=== PATIENT | male | born 1945 | race African-American/Black ===

== ENCOUNTER 2021-06-11 07:07 | Day surgery (SDC) | payer OTHER ==
[2021-06-11] MEDS ORDERED: NA CHLORIDE 0.9% 500 ML ONE (08:28)
[2021-06-11 08:41] VITALS: O2SAT 98
[2021-06-11 08:42] VITALS: BMI 32.9
[2021-06-11 13:18] VITALS: BP 120/66; TEMP 98.8
[2021-06-11 14:06] LABS: Hematocrit 30.9 % (39.6-49.0)
== END 2021-06-11 13:58 | disposition home or self-care (01) ==
LOC: DS 07:07
PROVIDERS: ATTEND Internal Medicine
DX: D62 Acute posthemorrhagic anemia (principal)
CPT/HCPCS: 36415; 86900; 86850; 86901; 85018; 85014; 36430; P9016 ×2; J7050

== ENCOUNTER 2021-07-23 14:22 | Inpatient (IN) | payer OTHER ==
--- OUTSIDE RECORDS SUMMARY | 2021-07-23 14:24 | XMS REPORT | Continuity of Care Document ---
:1945 Author Organization [facility] t Address [address] [place] [address] Dr. [address] [place] [address] Care Team Providers Name Role Phone Unavailable Unavailable Unavailable Problems This patient has no known problems. Allergies, Adverse Reactions, Alerts This patient has no known allergies or adverse reactions. Medications This patient has no known medications. Procedures This patient has no known procedures. Results This patient has no known results.
--- NOTE | 2021-07-23 15:36 | RAD REPORT ---
EXAM DESCRIPTION: RAD - Chest Single View - 07/23/2021 3:29 pm CLINICAL HISTORY: DYSPNEA COMPARISON: Two view chest June 27 ; two view chest June 10 TECHNIQUE: AP portable chest image was obtained 07/23/2021 3:29 pm . FINDINGS: Lung volumes are low than the comparison examination. Diffusely prominent interstitial pat tern is present with patchy alveolar opacities present on left. Pattern is more pronounced than on th e comparison study much of which is due to portable technique shallow inspiration. Similar findings w ere present on the 2 prior examinations. Severity of chronic disease could mask superimposed pneumoni a or interstitial edema. Left hemidiaphragm is partially obscured. Small left pleural effusion cannot be excluded. Cardiac silhouette and vasculature are similar to comparison. No pneumothorax. No acute bony abnormal ity seen. No acute aortic findings suspected. IMPRESSION: Patient has extensive baseline interstitial opacification that is more pronounced in the lower left lung field. Given the portable technique and more shallow inspiration, chest is not substantially different from comparison imaging. Severity of chronic disease could mask superimposed pneumonia or interstitial edema.
[2021-07-23 15:39] LABS: Arterial Blood Carboxyhemoglob 1.1 % (0-1.5); Blood Gas Oxyhemoglobin 93.8 % (94-97)
[2021-07-23 16:42] LABS: ALT/SGPT 26 U/L (12-78); AST/SGOT 90 U/L (15-37); Albumin 2.6 g/dL (3.4-5.0); Alkaline Phosphatase 81 U/L (45-117); BUN Blood Urea Nitrogen 53 mg/dL (7-18); Bicarbonate 15 mmol/L (21-32); Bilirubin Direct 0.2 mg/dL (0-0.2); Bilirubin Total 0.5 mg/dL (0.2-1.0); Glucose Level 190 mg/dL (74-106); Lipase 144 U/L (73-393); NT PRO-BNP 721 pg/mL (<450); Potassium 4.2 mmol/L (3.5-5.1); Protein, Total 9.2 g/dL (6.4-8.2); Sodium Level 136 mmol/L (136-145); Troponin (Emerg Dept Use Only) < 0.02 ng/mL (0.0-0.045)
[2021-07-23 16:52] LABS: Absolute Lymphocytes (CBC) 0.3 K/uL (0.7-4.9); Basophils % 0.6 % (0-1.3); Hematocrit 35.6 % (39.6-49.0); MPV 9.3 fL (7.6-11.3); RBC Red Blood Cell Count 5.23 M/uL (4.33-5.43)
--- NOTE | 2021-07-23 18:00 | ER ---
Nurse's Notes [facility] Name: Shyam Malcolm Age: 75 yrs Sex: Male : 1945 Arrival Date: 07/23/2021 Time: 14:29 Bed 16 Private MD: Diagnosis: Pneumonia due to SARS-associated coronavirus;Hypoxemia;COPD/ Chronic obstructive pulmonary disease with (acute) exacerbation Presentation: 07/23 14:42 Chief complaint: Patient's son or daughter states: sent by Dr Velazquez for hypoxia, was sv 50% on RA at his office. c/o low O2 and abd cramping and COVID like symptoms. Coronavirus screen: Client presents with at least one sign or symptom that may indicate coronavirus-19. Ebola Screen: No symptoms or risks identified at this time. Initial Sepsis Screen: Does the patient meet any 2 criteria? RR > 20 per min. HR > 90 bpm. Yes Does the patient have a suspected source of infection? No. Patient's initial sepsis screen is negative. Risk Assessment: Do you want to hurt yourself or someone else? Patient reports no desire to harm self or others. Onset of symptoms was July 23, 2021. 14:42 Method Of Arrival: Wheelchair sv 14:42 Acuity: JUVENAL 2 sv 14:44 Coronavirus screen: Vaccine status: Patient reports receiving the 1st dose of the Covid sv vaccine. Date July 18, 2021. 22:27 Note levaquin delayed due to iv access. lh3 Triage Assessment: 07/24 19:00 General: Appears in no apparent distress. comfortable, Behavior is calm, cooperative. bs2 Historical: - Allergies: 07/23 14:44 No Known Allergies; sv - Immunization history:: Adult Immunizations up to date. - Social history:: Smoking status: Patient/guardian denies using tobacco, but has a distant history of tobacco abuse. - Family history:: not pertinent. - Hospitalizations: : No recent hospitalization is reported. Screenin:52 Abuse screen: Denies threats or abuse. Denies injuries from another. Nutritional ch5 screening: No deficits noted. Tuberculosis screening: No symptoms or risk factors identified. Fall Risk None identified. Assessment: 15:49 Pain: Denies pain. Respiratory: Reports shortness of breath Feeling sick after 1st ch5 COVID vaccine. GI: Bowel sounds present X 4 quads. Abd is soft and non tender. 16:07 Reassessment: ABG drawn. RT declined BIPAP due to values and no complaint of difficulty ch5 breathing. BIPAP at bedside.. 18:01 Reassessment: No changes from previously documented assessment. Lab at bedside to draw ch5 rest of labs. Vital Signs: 14:42 BP 103 / 53; Pulse 102; Resp 22; Temp 98.3(O); Pulse Ox 78% on R/A; Weight 82.55 kg; sv Height 5 ft. 5 in. (165.10 cm); 15:52 BP 100 / 56; Pulse 98; Resp 34; Pulse Ox 84% on 4 lpm NC; Pain 0/10; ch5 16:06 BP 102 / 59; Pulse 96; Resp 34; Pulse Ox 90% on 5 lpm NC; Pain 0/10; ch5 17:01 BP 101 / 57; Pulse 90; Resp 31; Pulse Ox 97% 5 lpm ; Pain 0/10; ch5 18:01 BP 112 / 62; Pulse 89; Resp 31; Pulse Ox 96% on Nebulizer Mask; Pain 0/10; ch5 14:42 Body Mass Index 30.28 (82.55 kg, 165.10 cm) sv 14:42 Pt placed on O2 \T\ 4L per NC. O2 sat up to 87%. sv ED Course: 14:29 Patient arrived in ED. rg4 14:42 Arm band placed on. sv 14:44 Triage completed. sv 14:48 Fernando Alejandra MD is Attending Physician. rn 15:20 Patient has correct armband on for positive identification. Placed in gown. Bed in low mh5 position. Call light in reach. Side rails up X2. Adult w/ patient. Warm blanket given. patient monitor on. Pulse ox on. NIBP on. 15:20 EKG done, by ED staff, reviewed by Fernando Alejandra MD COVID swab sent to lab. 5 15:29 XRAY CXR (1 view) In Process Unspecified. EDMS 15:48 Milton Mccann, MÓNICA is Primary Nurse. ch5 15:52 No provider procedures requiring assistance completed. Inserted saline lock: 22 gauge ch5 in right wrist, using aseptic technique. 15:55 ABG Sent. ch5 15:55 BMP Sent. ch5 15:55 Blood Culture Adult (2) Sent. ch5 15:55 CBC with Diff Sent. ch5 15:55 D-Dimer Sent. ch5 17:59 Zen Velazquez MD is Hospitalizing Provider. rn 19:52 Primary Nurse role handed off by Milton Mccann, MÓNICA 3 19:52 Alexandra Carrero RN is Primary Nurse. 3 07/24 14:40 Inserted saline lock: 22 gauge in right antecubital area, using aseptic technique. kg 07/25 06:36 Patient admitted, IV remains in place. bs2 Administered Medications: 07/23 17:30 Drug: SOLU-Medrol (methylPrednisoLONE) 125 mg Route: IVP; Site: left antecubital; 5 22:27 Follow up: Response: No adverse reaction lh3 17:56 Drug: Xopenex (levalbuterol) 1.25 mg Route: Inhalation; ch5 22:26 Follow up: Response: No adverse reaction lh3 22:27 Drug: LevaQUIN (levofloxacin) 500 mg Volume: 100 ml; Route: IVPB; Infused Over: 60 lh3 mins; Site: right hand; 07/25 06:36 Follow up: IV Status: Completed infusion bs2 Outcome: 07/23 17:59 Decision to Hospitalize by Provider. rn 07/24 19:30 Admitted to ER Hold. Please see [facility] for further documentation. bs2 Condition: stable Instructed on the need for admit. 07/25 20:32 Patient left the ED. jb4 Signatures: Dispatcher [employer] EDMS Cristina Ramos RN RN sv Nieto, Roman, MD MD rn Garcia, Rubi 4 Immanuel Rider RN RN 4 Katina Cody Chantelle Hahn RN RN kg Marlena Cyr RN RN bs2 Alexandra Carrero RN RN 3 Milton Mccann RN RN ch5 Corrections: (The following items were deleted from the chart) 07/23 14:45 14:42 Acuity: JUVENAL 1 sv sv 14:51 14:42 BP 103 / 53; Pulse 102bpm; Resp 22bpm; Pulse Ox 80% RA; Temp 98.3F Oral; 82.55 sv kg; Height 5 ft. 5 in.; BMI: 30.2; sv
--- NOTE | 2021-07-23 18:01 | EDPHYS ---
Physician Documentation [facility] Name: Shyam Malcolm Age: 75 yrs Sex: Male : 1945 Arrival Date: 07/23/2021 Time: 14:29 Bed 16 Private MD: ED Physician Fernando Alejandra HPI: 07/23 15:08 This 75 yrs old Black Male presents to ER via Wheelchair with complaints of Low O2. rn 16:08 The patient has shortness of breath at rest, with light activity. Onset: The rn symptoms/episode began/occurred at an unknown time. Duration: The symptoms are intermittent. The patient's shortness of breath is aggravated by exertion, light activity, is alleviated by nothing. Associated signs and symptoms: Pertinent positives: non-productive cough, Pertinent negatives: fever, hemoptysis, loss of consciousness. Severity of symptoms: At their worst the symptoms were moderate in the emergency department the symptoms have improved. The patient has experienced similar episodes in the past. The patient has been recently seen by a physician:. Patient sent by Dr. Velazquez for trouble breathing and low oxygen saturation. Seen in clinic today. Patient with history of COPD. or family member states noticed weakness and decreased appetite over the last week, but difficulty breathing did not start until today. Denies fever or productive cough. No recent trauma. Dr. Velazquez states history of GI bleed, patient denies any blood in stool. Historical: - Allergies: 14:44 No Known Allergies; sv - Immunization history:: Adult Immunizations up to date. - Social history:: Smoking status: Patient/guardian denies using tobacco, but has a distant history of tobacco abuse. - Family history:: not pertinent. - Hospitalizations: : No recent hospitalization is reported. ROS: 16:08 Constitutional: Negative for fever, chills, and weight loss, Eyes: Negative for injury, rn pain, redness, and discharge, Neck: Negative for injury, pain, and swelling, Cardiovascular: Negative for chest pain, palpitations, and edema, Respiratory: Positive for shortness of breath and cough Abdomen/GI: Negative for abdominal pain, nausea, vomiting, diarrhea, and constipation, Back: Negative for injury and pain, : Negative for injury, bleeding, discharge, and swelling, MS/Extremity: Negative for injury and deformity, Skin: Negative for injury, rash, and discoloration, Neuro: Negative for headache, numbness, tingling, and seizure. 16:08 All other systems are negative. Exam: 16:08 Constitutional: This is a well developed, well nourished patient who is awake, alert, rn moderate tachypnea Head/Face: Normocephalic, atraumatic. Eyes: Periorbital areas with no swelling, redness, or edema. ENT: Dry mucous membranes, no stridor Cardiovascular: Regular rate and rhythm. No pulse deficits. Respiratory: Moderate tachypnea, diminished at bases, no retractions Abdomen/GI: Soft, non-tender Skin: Warm, dry, no cyanosis MS/ Extremity: Pulses equal, no cyanosis. Neuro: Awake and alert, GCS 15 17:13 ECG was reviewed by the Attending Physician. rn Vital Signs: 14:42 BP 103 / 53; Pulse 102; Resp 22; Temp 98.3(O); Pulse Ox 78% on R/A; Weight 82.55 kg; sv Height 5 ft. 5 in. (165.10 cm); 15:52 BP 100 / 56; Pulse 98; Resp 34; Pulse Ox 84% on 4 lpm NC; Pain 0/10; ch5 16:06 BP 102 / 59; Pulse 96; Resp 34; Pulse Ox 90% on 5 lpm NC; Pain 0/10; ch5 17:01 BP 101 / 57; Pulse 90; Resp 31; Pulse Ox 97% 5 lpm ; Pain 0/10; ch5 18:01 BP 112 / 62; Pulse 89; Resp 31; Pulse Ox 96% on Nebulizer Mask; Pain 0/10; ch5 14:42 Body Mass Index 30.28 (82.55 kg, 165.10 cm) sv 14:42 Pt placed on O2 \T\ 4L per NC. O2 sat up to 87%. sv MDM: 14:48 Patient medically screened. rn 17:54 Differential diagnosis: CHF exacerbation, Chronic Obstructive Pulmonary Disease rn pneumonia, Pneumothorax Sepsis COVID. Data reviewed: vital signs, nurses notes, lab test result(s), EKG, radiologic studies, plain films, and as a result, I will admit patient. 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 Interpretation: hypoxia. Plan: O2 by NC applied. Test interpretation: by ED physician or midlevel provider: plain radiologic studies, CXR with bilateral interstitial infiltrate . Counseling: I had a detailed discussion with the patient and/or guardian regarding: the historical points, exam findings, and any diagnostic results supporting the discharge/admit diagnosis, lab results, radiology results, the need for further work-up and treatment in the hospital. Response to treatment: the patient's symptoms have mildly improved after treatment, and as a result, I will admit patient. Admission orders: after a detailed discussion of the patient's condition and case, the admit orders are written by me. ED course: Patient with Covid pneumonia and hypoxemia, with COPD exacerbation. Will admit to Dr. Velazquez with consultation to Dr. Marquis. . 07/23 14:53 Order name: BMP 07/23 14:53 Order name: Blood Culture Adult (2) 07/23 14:53 Order name: CBC with Diff 07/23 14:53 Order name: D-Dimer 07/23 14:53 Order name: Hepatic Function; Complete Time: 16:45 07/23 14:53 Order name: Lipase; Complete Time: 16:45 07/23 14:53 Order name: NT PRO-BNP; Complete Time: 16:45 07/23 14:53 Order name: PT-INR 07/23 14:53 Order name: Ptt, Activated rn 07/23 14:53 Order name: Troponin (emerg Dept Use Only); Complete Time: 16:45 07/23 14:53 Order name: Procalcitonin; Complete Time: 16:45 07/23 14:53 Order name: Ferritin; Complete Time: 16:45 07/23 14:53 Order name: CRP; Complete Time: 16:45 07/23 14:53 Order name: Type And Screen 07/23 14:53 Order name: Basic Metabolic Panel; Complete Time: 16:45 [facility] 07/23 14:53 Order name: Blood Culture [facility] 07/23 14:53 Order name: CBC with Automated Diff; Complete Time: 17:06 EDAK 07/23 14:53 Order name: D-Dimer [facility] 07/23 15:20 Order name: ABG 07/23 15:20 Order name: ABG Arterial Blood Gas; Complete Time: 16:45 EDMS 07/23 17:52 Order name: SARS-COV-2 RT PCR; Complete Time: 17:53 EDMS 07/24 03:16 Order name: Basic Metabolic Panel EDAK 07/24 03:26 Order name: CBC with Automated Diff EDMS 07/24 04:48 Order name: Manual Differential EDMS 07/24 16:09 Order name: Comprehensive Metabolic Panel EDMS 07/24 17:33 Order name: Glucose, Ancillary Testing EDMS 07/24 18:25 Order name: Transferrin Sat/Iron Binding EDMS 07/25 08:00 Order name: Glucose, Ancillary Testing EDMS 07/25 12:03 Order name: Glucose, Ancillary Testing EDMS 07/23 14:53 Order name: XRAY CXR (1 view); Complete Time: 15:44 rn 07/23 14:53 Order name: EKG; Complete Time: 14:54 rn 07/23 14:53 Order name: Cardiac monitoring; Complete Time: 15:20 rn 07/23 14:53 Order name: EKG - Nurse/Tech; Complete Time: 14:57 rn 07/23 14:53 Order name: IV Saline Lock; Complete Time: 15:55 rn 07/23 14:53 Order name: Labs collected and sent; Complete Time: 15:55 rn 07/23 14:53 Order name: O2 Per Protocol; Complete Time: 14:58 rn 07/23 14:53 Order name: O2 Sat Monitoring; Complete Time: 14:58 rn 07/23 16:15 Order name: Labs - recollect needed: recollect type and screen and pt, ptt. rebmark pt; bd Complete Time: 18:39 07/24 14:55 Order name: US EDAK 07/25 13:07 Order name: Gram Stain--Aerobic Bottle EDAK 07/25 16:45 Order name: Glucose, Ancillary Testing EDMS EC:13 Rate is 104 beats/min. Rhythm is regular. QRS [place] is Normal. [place] interval is normal. rn QRS interval is normal. QT interval is normal. No Q waves. T waves are Normal. No ST changes noted. Clinical impression: Sinus tachycardia. Interpreted by me. Reviewed by me. Administered Medications: 17:30 Drug: SOLU-Medrol (methylPrednisoLONE) 125 mg Route: IVP; Site: left antecubital; ch5 22:27 Follow up: Response: No adverse reaction 3 17:56 Drug: Xopenex (levalbuterol) 1.25 mg Route: Inhalation; 5 22:26 Follow up: Response: No adverse reaction 3 22:27 Drug: LevaQUIN (levofloxacin) 500 mg Volume: 100 ml; Route: IVPB; Infused Over: 60 lh3 mins; Site: right hand; 07/25 06:36 Follow up: IV Status: Completed infusion bs2 Disposition Summary: 07/23/21 17:59 Hospitalization Ordered Hospitalization Status: Inpatient Admission rn Provider: Zen Velazquez rn Condition: Stable rn Problem: new rn Symptoms: have improved rn Bed/Room Type: Standard rn Location: Telemetry/MedSurg (Inpatient)(07/25/21 12:51) Room Assignment: [facility](07/25/21 12:51) Diagnosis - Pneumonia due to SARS-associated coronavirus rn - Hypoxemia rn - COPD/ Chronic obstructive pulmonary disease with (acute) exacerbation rn Forms: - Medication Reconciliation Form rn - SBAR form rn Signatures: Dispatcher [employer] EDMS Marjan Julien Stephanie RN RN Nini Malcolm RN RN Fernando Alejandra MD MD rn Hardee, Latisha, RN RN [facility] Milton Mccann RN RN 5 Marlena Cyr RN bs2 Corrections: (The following items were deleted from the chart) 07/23 16:56 14:54 CORONAVIRUS+MR.LAB.BRZ ordered. EDMS EDMS 18:36 17:59 Telemetry/MedSurg (Inpatient) rn bd 18:36 17:59 rn bd 07/25 12:51 07/23 18:36 BR ER HOLD bd iw 07/25 12:51 07/23 18:36 ERHOLD- bd iw
[2021-07-23] MEDS ORDERED: METHYLPREDNISOLONE 125 MG INJ ONE ×2 (18:11→20:20)
[2021-07-23] MEDS ORDERED: LEVALBUTEROL 1.25 MG/3 ML NEB ONE ×2 (18:12→20:21)
[2021-07-23 19:19] LABS: Protime INR 0.99
--- NOTE | 2021-07-23 19:58 | P.HP ---
Certification for Inpatient Patient admitted to: Inpatient With expected LOS: >2 Midnights Patient will require the following post-hospital care: Home Health Services Practitioner: I am a practitioner with admitting privileges, knowledge of patient current condition, hospital course, and medical plan of care. Services: Services provided to patient in accordance with Admission requirements found in Title 42 Section 412.3 of the Code of Federal Regulations Patient History Date of Service: 07/23/21 Primary Care Provider: Ewa Parisi Reason for admission: Covid Pneumonia History of Present Illness: Patient is an office patient of ours with a history of diabetes, copd and GI bleed, htn. He had his first covid vaccination this past Wednesday. He has been feeling dizzy for the past few days. The patient has been to [place] and had famiy visiting him at home. He was hypoxix in the office with a pulse ox in the 50-60's. tachycardic at rest and using acessory muscles. He was brought to the ER by his sister. The patient did well on oxygen. He was found to be covid positive. Will admit him to office. Allergies No Known Allergies Allergy (Verified 06/11/21 09:00) Home Medications: Albuterol Inhaler [Ventolin Inhaler] 2 puff IH Q6H PRN 06/11/21 Amox/Clavulanate [Augmentin 875-125 Tab*] 1 tab PO BID 06/11/21 Atorvastatin Calcium [Lipitor] 10 mg PO BEDTIME 06/11/21 Benzonatate [Tessalon Perle] 100 mg PO TID 06/11/21 Cyclobenzaprine [Flexeril*] 10 mg PO DAILY 06/11/21 Dapagliflozin Propanediol [Farxiga] 10 mg PO DAILY 06/11/21 Omeprazole 20 mg PO DAILY 06/11/21 Sitagliptin Phos/Metformin HCl [Janumet Xr 100-1,000 mg Tablet] 1 tab PO DAILY 06/11/21 Tiotropium [place] [Spiriva Respimat] 4 gm IH BID 06/11/21 - Past Medical/Surgical History Diabetic: Yes Review of Systems General: Other (dizziness) Respiratory: Shortness of Breath, SOB with Excertion Cardiovascular: Light Headedness Physical Examination - Physical Exam General: Alert, Moderate distress HEENT: Atraumatic, PERRLA, Mucous membr. moist/pink, EOMI, Sclerae nonicteric Neck: Supple, 2+ carotid pulse no bruit, No LAD, Without JVD or thyroid abnormality Respiratory: Normal air movement, Crackles/rales (left basilar crepitation) Cardiovascular: Regular rate/rhythm, Normal S1 S2 Gastrointestinal: Normal bowel sounds, No tenderness Musculoskeletal: No tenderness Integumentary: No rashes Neurological: Normal gait, Normal speech, Normal strength at 5/5 x4 extr, Normal tone, Normal affect Lymphatics: No axilla or inguinal lymphadenopathy - Studies Laboratory Data (last 24 hrs) 07/23/21 15:40: WBC 7.70, Hgb 10.4 L, Hct 35.6 L, Plt Count 140 L 07/23/21 15:40: Sodium 136, Potassium 4.2, BUN 53 H, Creatinine 3.15 H, Glucose 190 H, Total Bilirubin 0.5, AST 90 H, ALT 26, Alkaline Phosphatase 81, Lipase 144 Assessment and Plan - Problems (Diagnosis) (1) COVID-19 Current Visit: Yes Status: Acute Plan: will consult Dr. Aviles. He is improving with steroids and high flow oxygen (2) COPD (chronic obstructive pulmonary disease) Current Visit: Yes Status: Chronic Plan: Start on levalbuterol and he is on steroids. Qualifiers: COPD type: chronic bronchitis Chronic bronchitis type: simple Qualified Code(s): J41.0 - Simple chronic bronchitis (3) DM2 (diabetes mellitus, type 2) Current Visit: Yes Status: Chronic Plan: will start him on his home medications Qualifiers: Diabetes mellitus nursing home insulin use: without nursing home use Diabetes mellitus complication status: without complication Qualified Code(s): E11.9 - Type 2 diabetes mellitus without complications (4) HTN (hypertension) Current Visit: Yes Status: Acute Plan: will start the patient on his home medications. Ruiz adjust as necessary Qualifiers: Hypertension type: primary hypertension Qualified Code(s): I10 - Essential (primary) hypertension Discharge Plan: Home - Advance Directives Does patient have a Living Will: Yes Does patient have a Durable POA for Healthcare: Yes - Code Status/Comfort Care Code Status Assessed: No Physician Review: Patient Assessed, Agree with Above Assessment and Plan Critical Care: No Time Spent Managing Pts Care (In Minutes): 80
[2021-07-23] MEDS ORDERED: Levofloxacin500mg IV 500 MG/100 ML BAG IV ONE (20:21)
[2021-07-23] MEDS: [UNRECOGNIZED DRUG - OTHER] IH SCH (22:28)
[2021-07-23] MEDS ORDERED: ONDANSETRON 4 MG/2 ML VIAL IV PRN (22:28)
[2021-07-23] MEDS ORDERED: ALBUTEROL 2.5 MG/3 ML NEB SOL NEB PRN (22:28)
[2021-07-23] MEDS: NA CHLORIDE 0.9% 1,000 ML IV SCH (22:28)
[2021-07-23] MEDS: ATORVASTATIN 10 MG TAB PO SCH (22:28)
[2021-07-23] MEDS ORDERED: IPRATROPIUM BROM 0.5MG/2.5ML NEB PRN (22:28)
[2021-07-23] MEDS: APIXABAN 5 MG TABLET PO SCH (22:28)
[2021-07-23] MEDS ORDERED: ATORVASTATIN 20 MG TAB ONE (23:46)
[2021-07-23] MEDS ORDERED: APIXABAN 5 MG TABLET ONE (23:47)
[2021-07-23] MEDS ORDERED: NA CHLORIDE 0.9% 1,000 ML ONE (23:47)
[2021-07-24] MEDS ORDERED: METHYLPREDNISOLONE 40 MG INJ IV SCH (01:00)
[2021-07-24] MEDS: METHYLPREDNISOLONE 40 MG INJ IV SCH ×3 (01:00→17:00)
[2021-07-24] MEDS ORDERED: METHYLPREDNISOLONE 40 MG INJ ONE (01:26)
[2021-07-24] MEDS ORDERED: ASCORBIC ACID 500 MG TABLET ONE ×5 (01:26→17:21)
[2021-07-24 03:16] LABS: Absolute Lymphocytes (CBC) 0.2 K/uL (0.7-4.9); Basophils % 0.3 % (0-1.3); Hematocrit 34.7 % (39.6-49.0); Lymphocytes % 3.9 % (15.3-44.8); MPV 8.8 fL (7.6-11.3); Potassium 4.8 mmol/L (3.5-5.1)
[2021-07-24 04:47] LABS: Anisocytosis 2+; Blood Morphology Comment NOTED (NOT SEEN); Platelet Estimate ADEQ
[2021-07-24 04:48] LABS: Hypochromasia 2+
[2021-07-24] MEDS: ASCORBIC ACID 500 MG TABLET PO SCH ×4 (05:13→17:33)
[2021-07-24] MEDS ORDERED: ASPIRIN EC 81 MG TAB PO ONE (07:50)
[2021-07-24] MEDS ORDERED: METHYLPREDNISOLONE 125 MG INJ ONE ×2 (07:50→17:35)
[2021-07-24] MEDS ORDERED: APIXABAN 5 MG TABLET ONE (07:51)
[2021-07-24] MEDS ORDERED: NA CHLORIDE 0.9% 1,000 ML ONE (07:51)
[2021-07-24] MEDS ORDERED: VITAMIN D 1000 UNIT TAB ONE (07:51)
[2021-07-24] MEDS ORDERED: ZINC SULFATE 220 MG CAP ONE (07:51)
[2021-07-24] MEDS: BARICITINIB 2 MG TABLET PO SCH (09:00)
[2021-07-24] MEDS: VITAMIN D 5,000 UNIT CAP PO SCH (09:00)
[2021-07-24] MEDS: APIXABAN 5 MG TABLET PO SCH ×2 (09:00→21:00)
[2021-07-24] MEDS: [UNRECOGNIZED DRUG - OTHER] IH SCH (09:00)
[2021-07-24] MEDS: ZINC SULFATE 220 MG CAP PO SCH (09:00)
[2021-07-24] MEDS: IVERMECTIN 3 MG TABLET PO SCH (09:00)
[2021-07-24] MEDS: ASPIRIN EC 81 MG TAB PO SCH (09:00)
[2021-07-24] MEDS ORDERED: ONDANSETRON 4 MG/2 ML VIAL ONE (09:54)
[2021-07-24] MEDS ORDERED: IPRATROPIUM BROM 0.5MG/2.5ML ONE (10:00)
[2021-07-24] MEDS: TIOTROPIUM 5 SPRAYS/INHALER IH SCH (10:30)
[2021-07-24] MEDS: NA CHLORIDE 0.9% 1,000 ML IV SCH (11:48)
--- NOTE | 2021-07-24 12:40 | P.CNS ---
Date of Consult: 07/24/21 Primary Care Provider: Ewa Parisi Chief Complaint: Covid Pneumonia History of Present Illness: Patient is 75 years of age patient is 45 years of age with metabolic syndrome admitted with coronavirus pneumonia Allergies No Known Allergies Allergy (Verified 06/11/21 09:00) Home Medications: Albuterol Inhaler [Ventolin Inhaler] 2 puff IH Q6H PRN 06/11/21 Amox/Clavulanate [Augmentin 875-125 Tab*] 1 tab PO BID 06/11/21 Atorvastatin Calcium [Lipitor] 10 mg PO BEDTIME 06/11/21 Benzonatate [Tessalon Perle] 100 mg PO TID 06/11/21 Cyclobenzaprine [Flexeril*] 10 mg PO DAILY 06/11/21 Dapagliflozin Propanediol [Farxiga] 10 mg PO DAILY 06/11/21 Omeprazole 20 mg PO DAILY 06/11/21 Sitagliptin Phos/Metformin HCl [Janumet Xr 100-1,000 mg Tablet] 1 tab PO DAILY 06/11/21 Tiotropium [place] [Spiriva Respimat] 4 gm IH BID 06/11/21 - Past Medical/Surgical History Diabetic: Yes -: Diabetes -: Hyperlipidemia Review of Systems General: Weakness Respiratory: Shortness of Breath Physical Examination Temp Pulse Resp BP Pulse Ox 97.9 F 77 24 H 126/72 95 07/24/21 09:47 07/24/21 09:47 07/24/21 09:47 07/24/21 09:47 07/24/21 09:47 General: Alert, Oriented x3, Cooperative, Moderate distress Laboratory Data (last 24 hrs) 07/23/21 15:40: WBC 7.70, Hgb 10.4 L, Hct 35.6 L, Plt Count 140 L 07/23/21 15:40: Sodium 136, Potassium 4.2, BUN 53 H, Creatinine 3.15 H, Glucose 190 H, Total Bilirubin 0.5, AST 90 H, ALT 26, Alkaline Phosphatase 81, Lipase 144 - Problems (1) COVID-19 Current Visit: Yes Status: Acute Plan: Age 75 admitted with [facility] age 75 admitted with coronavirus pneumonia/chronic renal failure patient has microcytic anemia I have ordered a renal ultrasound needs nephrology consult urinalysis
--- NOTE | 2021-07-24 14:54 | RAD REPORT ---
EXAM DESCRIPTION: US - Renal Ultrasound-Complete - 07/24/2021 1:54 pm CLINICAL HISTORY: Renal failure presumed chronic Flank pain COMPARISON: No comparisons FINDINGS: Both kidneys are normal in size, shape and echotexture. The right kidney measures 9.5 x 4.5 x 4.2 cm. No hydronephrosis, focal mass or perinephric fluid. The left kidney measures 9.4 x 5.9 x 5.3 cm. 26 x 25 mm benign cyst medial left kidney. No hydronephr osis, focal mass or perinephric fluid. The urinary bladder is incompletely distended without gross abnormality seen. IMPRESSION: Benign left renal cyst measuring 25 mm, otherwise normal study.
[2021-07-24 16:00] LABS: Albumin 2.3 g/dL (3.4-5.0); Bilirubin Total 0.5 mg/dL (0.2-1.0); Potassium 4.8 mmol/L (3.5-5.1); Protein, Total 8.3 g/dL (6.4-8.2)
[2021-07-24] MEDS ORDERED: GLUCAGON 1 MG/VIAL IM PRN (16:46)
[2021-07-24] MEDS ORDERED: D50W 25 GM/50 ML SYRINGE IV PRN (16:46)
[2021-07-24] MEDS: NACHLORIDE 0.45% 1,000 ML IV SCH (17:00)
--- NOTE | 2021-07-24 17:08 | P.PN ---
Subjective Date of Service: 07/24/21 Primary Care Provider: Ewa Parisi Chief Complaint: Covid Pneumonia Subjective: No new changes (on high flow) Review of Systems 10-point ROS is otherwise unremarkable Respiratory: Cough, Shortness of Breath Physical Examination - Vital Signs Temperature: 98.5 F Blood Pressure: 113/68 Pulse: 74 Respirations: 22 Pulse Ox (%): 95 - Physical Exam General: Alert, Mild distress HEENT: Atraumatic, PERRLA, EOMI Neck: Supple, JVD not distended Respiratory: Clear to auscultation bilaterally, Normal air movement Cardiovascular: Regular rate/rhythm, Normal S1 S2 Gastrointestinal: Normal bowel sounds, No tenderness Musculoskeletal: No tenderness Integumentary: No rashes Neurological: Normal speech, Normal tone, Normal affect Lymphatics: No axilla or inguinal lymphadenopathy - Studies Microbiology Data (last 24 hrs): 07/23/21 15:40 Blood - Blood Anaerobic Blood Culture - Final Assessment & Plan - Problems (Diagnosis) (1) Acute on chronic renal failure Current Visit: Yes Status: Acute Plan: possible atn secondary to covid. His baseline creatine is 1.3. will consult Dr. Ford Qualifiers: Acute renal failure type: unspecified Chronic kidney disease stage: stage 4 (severe) Qualified Code(s): N17.9 - Acute kidney failure, unspecified; N18.4 - Chronic kidney disease, stage 4 (severe) (2) COVID-19 Current Visit: Yes Status: Acute Plan: will consult Dr. Aviles. He is improving with steroids and high flow oxygen (3) COPD (chronic obstructive pulmonary disease) Current Visit: Yes Status: Chronic Plan: Start on levalbuterol and he is on steroids. Qualifiers: COPD type: chronic bronchitis Chronic bronchitis type: simple Qualified Code(s): J41.0 - Simple chronic bronchitis (4) DM2 (diabetes mellitus, type 2) Current Visit: Yes Status: Chronic Plan: elevated today will start him on a low dose sliding scale Qualifiers: Diabetes mellitus buttermaker helper insulin use: without care home use Diabetes mellitus complication status: without complication Qualified Code(s): E11.9 - Type 2 diabetes mellitus without complications (5) HTN (hypertension) Current Visit: Yes Status: Acute Plan: will start the patient on his home medications. Ruiz adjust as necessary Qualifiers: Hypertension type: primary hypertension Qualified Code(s): I10 - Essential (primary) hypertension Discharge Plan: Home - Code Status/Comfort Care Code Status Assessed: No Code Status: Full Code Physician Review: Patient Assessed, Agree with Above Assessment and Plan Critical Care: No Time Spent Managing Pts Care (In Minutes): 25
[2021-07-24] MEDS: INSULIN -REGULAR HUMAN 50 UNIT/0.5 ML ML SQ SCH (17:34)
[2021-07-24] MEDS ORDERED: NACHLORIDE 0.45% 1,000 ML IV ONE (17:35)
[2021-07-24] MEDS ORDERED: INSULIN -REGULAR HUMAN 50 UNIT/0.5 ML ML ONE (17:45)
[2021-07-24] MEDS: ATORVASTATIN 10 MG TAB PO SCH (21:00)
[2021-07-25] MEDS: METHYLPREDNISOLONE 40 MG INJ IV SCH ×3 (01:00→17:00)
[2021-07-25] MEDS ORDERED: APIXABAN 5 MG TABLET ONE ×2 (01:11→08:40)
[2021-07-25] MEDS ORDERED: ATORVASTATIN 20 MG TAB ONE (01:11)
[2021-07-25] MEDS ORDERED: ASCORBIC ACID 500 MG TABLET ONE ×2 (01:11→08:38)
[2021-07-25] MEDS ORDERED: METHYLPREDNISOLONE 40 MG INJ ONE ×3 (01:12→17:18)
[2021-07-25] MEDS: ASCORBIC ACID 500 MG TABLET PO SCH ×4 (06:00→20:20)
[2021-07-25] MEDS: INSULIN -REGULAR HUMAN 50 UNIT/0.5 ML ML SQ SCH ×4 (07:30→20:21)
[2021-07-25] MEDS: APIXABAN 5 MG TABLET PO SCH ×2 (08:37→20:20)
[2021-07-25] MEDS: ASPIRIN EC 81 MG TAB PO SCH (08:37)
[2021-07-25] MEDS: ZINC SULFATE 220 MG CAP PO SCH (08:38)
[2021-07-25] MEDS: VITAMIN D 5,000 UNIT CAP PO SCH (08:38)
[2021-07-25] MEDS ORDERED: INSULIN -REGULAR HUMAN 50 UNIT/0.5 ML ML ONE ×3 (08:39→17:19)
[2021-07-25] MEDS ORDERED: ASPIRIN EC 81 MG TAB PO ONE (08:40)
[2021-07-25] MEDS ORDERED: ZINC SULFATE 220 MG CAP ONE (08:41)
[2021-07-25] MEDS: BARICITINIB 2 MG TABLET PO SCH (09:00)
[2021-07-25] MEDS: TIOTROPIUM 5 SPRAYS/INHALER IH SCH (09:00)
[2021-07-25] MEDS: NACHLORIDE 0.45% 1,000 ML IV SCH ×2 (13:00→22:10)
[2021-07-25] MEDS ORDERED: NACHLORIDE 0.45% 1,000 ML IV ONE (13:09)
[2021-07-25] MEDS: BENZONATATE 100 MG CAP PO PRN (17:14)
[2021-07-25] MEDS ORDERED: BENZONATATE 100 MG CAP PO ONE (17:18)
--- NOTE | 2021-07-25 18:35 | P.PN ---
Subjective Date of Service: 07/25/21 Primary Care Provider: Ewa Parisi Chief Complaint: Covid Pneumonia Subjective: No new changes Review of Systems 10-point ROS is otherwise unremarkable Respiratory: Shortness of Breath Physical Examination - Vital Signs Temperature: 97.6 F Blood Pressure: 127/73 Pulse: 75 Respirations: 20 Pulse Ox (%): 92 - Physical Exam General: Alert, In no apparent distress HEENT: Atraumatic, PERRLA, EOMI Neck: Supple, JVD not distended Respiratory: Clear to auscultation bilaterally, Normal air movement Cardiovascular: Regular rate/rhythm, Normal S1 S2 Gastrointestinal: Normal bowel sounds, No tenderness Musculoskeletal: No tenderness Integumentary: No rashes Neurological: Normal speech, Normal tone, Normal affect Lymphatics: No axilla or inguinal lymphadenopathy - Studies Microbiology Data (last 24 hrs): 07/23/21 15:40 Blood - Blood Blood Culture Gram Stain - Final 07/23/21 15:40 Blood - Blood Anaerobic Blood Culture - Final Assessment & Plan - Problems (Diagnosis) (1) Acute on chronic renal failure Current Visit: Yes Status: Acute Plan: possible atn secondary to covid. His baseline creatine is 1.3. will consult Dr. Ford Qualifiers: Acute renal failure type: unspecified Chronic kidney disease stage: stage 4 (severe) Qualified Code(s): N17.9 - Acute kidney failure, unspecified; N18.4 - Chronic kidney disease, stage 4 (severe) (2) COVID-19 Current Visit: Yes Status: Acute Plan: will consult Dr. Aviles. He is improving with steroids and high flow oxygen (3) COPD (chronic obstructive pulmonary disease) Current Visit: Yes Status: Chronic Plan: Start on levalbuterol and he is on steroids. Qualifiers: COPD type: chronic bronchitis Chronic bronchitis type: simple Qualified Code(s): J41.0 - Simple chronic bronchitis (4) DM2 (diabetes mellitus, type 2) Current Visit: Yes Status: Chronic Plan: elevated today will start him on a low dose sliding scale Qualifiers: Diabetes mellitus extermination supervisor insulin use: without chcf use Diabetes mellitus complication status: without complication Qualified Code(s): E11.9 - Type 2 diabetes mellitus without complications (5) HTN (hypertension) Current Visit: Yes Status: Acute Plan: will start the patient on his home medications. Ruiz adjust as necessary Qualifiers: Hypertension type: primary hypertension Qualified Code(s): I10 - Essential (primary) hypertension Discharge Plan: Home Plan to discharge in: Greater than 2 days - Code Status/Comfort Care Code Status Assessed: No Physician Review: Patient Assessed, Agree with Above Assessment and Plan Critical Care: No Time Spent Managing Pts Care (In Minutes): 25
[2021-07-25] MEDS: ATORVASTATIN 10 MG TAB PO SCH (20:20)
--- NOTE | 2021-07-25 21:36 | P.CNS ---
Date of Consult: 07/25/21 Reason for Consult: LUCIANA Requesting Physician: Zen Velazquez Primary Care Provider: Ewa Parisi Chief Complaint: Covid Pneumonia History of Present Illness: Patient is an office patient of ours with a history of diabetes, copd and GI bleed, htn. He had his first covid vaccination this past Wednesday. He has been feeling dizzy for the past few days. The patient has [place] to [place] and had famiy visiting him at home. He was hypoxix in the office with a pulse ox in the 50-60's. tachycardic at rest and using acessory muscles. He was brought to the ER by his sister. The patient did well on oxygen. He was found to be covid positive. 15:08 This 75 yrs old Black Male presents to ER via Wheelchair with complaints of Low O2. rn 16:08 The patient has shortness of breath at rest, with light activity. Onset: The rn symptoms/episode began/occurred at an unknown time. Duration: The symptoms are intermittent. The patient's shortness of breath is aggravated by exertion, light activity, is alleviated by nothing. Associated signs and symptoms: Pertinent positives: non-productive cough, Pertinent negatives: fever, hemoptysis, loss of consciousness. Severity of symptoms: At their worst the symptoms were moderate in the emergency department the symptoms have improved. The patient has experienced similar episodes in the past. The patient has been recently seen by a physician:. Patient sent by Dr. Velazquez for trouble breathing and low oxygen saturation. Seen in clinic today. Patient with history of COPD. or family member states noticed weakness and decreased appetite over the last week, but difficulty breathing did not start until today. Denies fever or productive cough. No recent trauma. Dr. Velazquez states history of GI bleed, patient denies any blood in stool. Allergies No Known Allergies Allergy (Verified 06/11/21 09:00) Home medications list reviewed: Yes Home Medications: Albuterol Inhaler [Ventolin Inhaler] 2 puff IH Q6H PRN 06/11/21 Amox/Clavulanate [Augmentin 875-125 Tab*] 1 tab PO BID 06/11/21 Atorvastatin Calcium [Lipitor] 10 mg PO BEDTIME 06/11/21 Benzonatate [Tessalon Perle] 100 mg PO TID 06/11/21 Cyclobenzaprine [Flexeril*] 10 mg PO DAILY 06/11/21 Dapagliflozin Propanediol [Farxiga] 10 mg PO DAILY 06/11/21 Omeprazole 20 mg PO DAILY 06/11/21 Sitagliptin Phos/Metformin HCl [Janumet Xr 100-1,000 mg Tablet] 1 tab PO DAILY 06/11/21 Tiotropium [place] [Spiriva Respimat] 4 gm IH BID 06/11/21 - Past Medical/Surgical History Diabetic: Yes -: Diabetes -: Hyperlipidemia - Social History Smoking Status: Former smoker Review of Systems 10-point ROS is otherwise unremarkable Physical Examination Temp Pulse Resp BP Pulse Ox 97.6 F 75 20 127/73 92 07/25/21 18:34 07/25/21 18:34 07/25/21 18:34 07/25/21 18:34 07/25/21 18:34 General: In no apparent distress, Cooperative HEENT: Atraumatic Neck: Supple Respiratory: Diminished Cardiovascular: No edema, Regular rate/rhythm Gastrointestinal: Soft and benign, Non-distended Musculoskeletal: No clubbing, No contractures Integumentary: No rashes, No cyanosis Neurological: Normal speech Blood work reviewed in the chart. Imagings Data: EXAM DESCRIPTION: US - Renal Ultrasound-Complete - 07/24/2021 1:54 pm CLINICAL HISTORY: Renal failure presumed chronic Flank pain COMPARISON: No comparisons FINDINGS: Both kidneys are normal in size, shape and echotexture. The right kidney measures 9.5 x 4.5 x 4.2 cm. No hydronephrosis, focal mass or perinephric fluid. The left kidney measures 9.4 x 5.9 x 5.3 cm. 26 x 25 mm benign cyst medial left kidney. No hydronephrosis, focal mass or perinephric fluid. The urinary bladder is incompletely distended without gross abnormality seen. IMPRESSION: Benign left renal cyst measuring 25 mm, otherwise normal study. EXAM DESCRIPTION: RAD - Chest Single View - 07/23/2021 3:29 pm CLINICAL HISTORY: DYSPNEA COMPARISON: Two view chest June 27 ; two view chest June 10 TECHNIQUE: AP portable chest image was obtained 07/23/2021 3:29 pm . FINDINGS: Lung volumes are low than the comparison examination. Diffusely prominent interstitial pattern is present with patchy alveolar opacities present on left. Pattern is more pronounced than on the comparison study much of which i s due to portable technique shallow inspiration. Similar findings were present on the 2 prior examinations. Severity of chronic disease could mask superimposed pneumonia or interstitial edema. Left hemidiaphragm is partially obscured. Small left pleural effusion cannot be excluded. Cardiac silhouette and vasculature are similar to comparison. No pneumothorax. No acute bony abnormality seen. No acute aortic findings suspected. IMPRESSION: Patient has extensive baseline interstitial opacification that is more pronounced in the lower left lung field. Given the portable technique and more shallow inspiration, chest is not substantially different from comparison imaging. Severity of chronic disease could mask superimposed pneumonia or interstitial edema. Conclusions/Impression: LUCIANA vs CKD IV -No NSAIDs -Continue gentle IVF Acidosis -Start oral bicarb Hypocalcemia -Continue Vitamin D3 DM II with CKD -RISS Moderate malnlutrition -Encourage nutrition -Start Nepro Anemia in chronic illness Iron deficiency -Continue IV iron supplementation COVID-19 PNA Acute hypoxic respiratory failure -Continue supplemental Oxygen -Continue Ivermectin -Continue Baricitinib Thank you kindly for the consultation.
[2021-07-25 23:31] LABS: Urine Appearance CLEAR (Clear); Urine Bilirubin NEGATIVE (Negative); Urine Blood 3+ (Negative); Urine Color YELLOW (Yellow); Urine Glucose 3+ (Negative); Urine Protein 3+ (Negative); Urine Specific Gravity 1.015 (1.005-1.030); Urine Urobilinogen 0.2 mg/dL (0.2-1.0); Urine pH 5.5 (5.0-7.0)
[2021-07-25 23:55] LABS: Urine Microscopic Reflex ORDER UMIC
[2021-07-26] LABS: UR PROTEIN 596.9 mg/dL (<11.9); Urine Protein/Creatinine Ratio 9.47 ratio (<0.15)
[2021-07-26] MEDS: ASCORBIC ACID 500 MG TABLET PO SCH ×5 (00:06→23:33)
[2021-07-26] MEDS: METHYLPREDNISOLONE 40 MG INJ IV SCH ×3 (00:06→19:44)
[2021-07-26 00:17] LABS: Urine Amorphous Sediment 1+ /HPF (NONE SEEN); Urine Bacteria >50 /HPF (NONE SEEN); Urine Coarse Granular Casts 0-5 /LPF (NONE SEEN); Urine Mucus 1+ /HPF (NONE SEEN); Urine RBC <5 /HPF (NONE SEEN); Urine Trichomonas PRESENT (NONE SEEN)
[2021-07-26] MEDS: TIOTROPIUM 5 SPRAYS/INHALER IH SCH (09:00)
[2021-07-26] MEDS: BARICITINIB 2 MG TABLET PO SCH (09:12)
[2021-07-26] MEDS: NEPRO SHAKE 237 ML CAN PO SCH ×3 (09:12→19:50)
[2021-07-26] MEDS: IVERMECTIN 3 MG TABLET PO SCH (09:13)
[2021-07-26] MEDS: INSULIN -REGULAR HUMAN 50 UNIT/0.5 ML ML SQ SCH ×4 (09:13→19:43)
[2021-07-26] MEDS: ASPIRIN EC 81 MG TAB PO SCH (09:14)
[2021-07-26] MEDS: SODIUM BICARB 325 MG TAB PO SCH ×3 (09:14→17:04)
[2021-07-26] MEDS: VITAMIN D 5,000 UNIT CAP PO SCH (09:14)
[2021-07-26] MEDS: APIXABAN 5 MG TABLET PO SCH ×2 (09:14→19:47)
[2021-07-26] MEDS: ZINC SULFATE 220 MG CAP PO SCH (09:14)
[2021-07-26] MEDS: SOD FERRIC GLUC COMPLX/SUCROSE 250 MG in NA CHLORIDE 0.9% 250 ML IV SCH (09:15)
--- NOTE | 2021-07-26 11:46 | P.PN ---
Subjective Date of Service: 07/26/21 Primary Care Provider: Ewa Parisi Chief Complaint: Covid Pneumonia Subjective: No new changes (pt on 15lts of nc) Review of Systems 10-point ROS is otherwise unremarkable Respiratory: SOB with Excertion Physical Examination - Vital Signs Temperature: 97.5 F Blood Pressure: 136/60 Pulse: 64 Respirations: 24 Pulse Ox (%): 94 - Physical Exam General: Alert, In no apparent distress HEENT: Atraumatic, PERRLA, EOMI Neck: Supple, JVD not distended Respiratory: Clear to auscultation bilaterally, Normal air movement Cardiovascular: Regular rate/rhythm, Normal S1 S2 Gastrointestinal: Normal bowel sounds, No tenderness Musculoskeletal: No tenderness Integumentary: No rashes Neurological: Normal speech, Normal tone, Normal affect Lymphatics: No axilla or inguinal lymphadenopathy - Studies Microbiology Data (last 24 hrs): 07/23/21 15:40 Blood - Blood Blood Culture Gram Stain - Final 07/23/21 15:40 Blood - Blood Anaerobic Blood Culture - Final Assessment & Plan - Problems (Diagnosis) (1) Acute on chronic renal failure Current Visit: Yes Status: Acute Plan: possible atn secondary to covid. His baseline creatine is 1.3. will consult Dr. Ford Qualifiers: Acute renal failure type: unspecified Chronic kidney disease stage: stage 4 (severe) Qualified Code(s): N17.9 - Acute kidney failure, unspecified; N18.4 - Chronic kidney disease, stage 4 (severe) (2) COVID-19 Current Visit: Yes Status: Acute Plan: will consult Dr. Aviles. He is improving with steroids and high flow oxygen (3) COPD (chronic obstructive pulmonary disease) Current Visit: Yes Status: Chronic Plan: Start on levalbuterol and he is on steroids. Qualifiers: COPD type: chronic bronchitis Chronic bronchitis type: simple Qualified Code(s): J41.0 - Simple chronic bronchitis (4) DM2 (diabetes mellitus, type 2) Current Visit: Yes Status: Chronic Plan: elevated today will start him on a low dose sliding scale Qualifiers: Diabetes mellitus half-way insulin use: without half-way use Diabetes mellitus complication status: without complication Qualified Code(s): E11.9 - Type 2 diabetes mellitus without complications (5) HTN (hypertension) Current Visit: Yes Status: Acute Plan: will start the patient on his home medications. Ruiz adjust as necessary Qualifiers: Hypertension type: primary hypertension Qualified Code(s): I10 - Essential (primary) hypertension Discharge Plan: Home Plan to discharge in: Greater than 2 days - Code Status/Comfort Care Code Status Assessed: No Physician Review: Patient Assessed, Agree with Above Assessment and Plan Critical Care: No Time Spent Managing Pts Care (In Minutes): 20
[2021-07-26] MEDS: BENZONATATE 100 MG CAP PO PRN (12:44)
--- NOTE | 2021-07-26 12:54 | P.PN ---
Subjective Date of Service: 07/26/21 Primary Care Provider: Ewa Parisi Chief Complaint: Covid Pneumonia Subjective: Improving (Patient is doing much better he is more alert responsive on high flow oxygen) Review of Systems Respiratory: Shortness of Breath Physical Examination - Vital Signs Temperature: 97 F Blood Pressure: 138/70 Pulse: 66 Respirations: 24 Pulse Ox (%): 90 - Physical Exam General: Alert, Oriented x3, Cooperative - Studies Microbiology Data (last 24 hrs): 07/23/21 15:40 Blood - Blood Blood Culture Gram Stain - Final 07/23/21 15:40 Blood - Blood Anaerobic Blood Culture - Final Assessment & Plan - Problems (Diagnosis) (1) COVID-19 Current Visit: Yes Status: Acute Plan: Respiratory failure patient is doing much better alert responsive cooperative still on 15 L of oxygen unable to do labs reduce dose of Solu-Medrol Physician Review: Patient Assessed, Agree with Above Assessment and Plan
--- NOTE | 2021-07-26 15:13 | PN ---
Date of Progress Note: 07/26/2021 Subjective: The patient was seen and examined at bedside. He denies any other new complaints at thi s time. Physical Examination: Vital Signs: Have been reviewed. O2 saturation of 90% on 10 L nasal cannula oxygen. General: He appears in no acute distress. HEENT: Atraumatic head. Lungs: Auscultation of lungs revealed diminished breath sounds bilaterally. Abdomen: Soft and nontender. Extremities: Without any evidence of edema. Laboratory Data: None obtained from today. He was a hard stick and hence labs could not be obtained . Current medications have been reviewed in detail. The patient remains on half NS at 50 cc an hour, E liquis, aspirin, atorvastatin, baricitinib, benzonatate, vitamin D, insulin, Solu-Medrol 80 mg every 12 hours. Impression: 1.Acute renal failure secondary to acute tubular necrosis. Will need updated renal function panel. The patient, however, seems to be nonoliguric at this time. 2.Hyperglycemia secondary to steroid use for treatment of COVID-19 pneumonia. The patient is curren tly on Farxiga and insulin is being adjusted by primary team. 3.Acidosis, currently on sodium bicarbonate. 4.COVID-19 pneumonia, remains on baricitinib, steroids, and antibiotics. Plan: The patient is overall doing okay at this time. Continue to monitor closely. We will follow up on labs and continue supportive measures. VV/MODL Voice ID: [id number] Report ID: [id number]
[2021-07-26] MEDS: NACHLORIDE 0.45% 1,000 ML IV SCH (17:05)
[2021-07-26] MEDS: ATORVASTATIN 10 MG TAB PO SCH (19:47)
[2021-07-27 06:30] LABS: Albumin 2.2 g/dL (3.4-5.0); Bilirubin Total 0.5 mg/dL (0.2-1.0); Phosphorus 5.1 mg/dL (2.5-4.9); Protein, Total 8.2 g/dL (6.4-8.2); Uric Acid 11.4 mg/dL (3.5-7.2)
[2021-07-27 06:32] LABS: Magnesium 3.6 mg/dL (1.8-2.4)
[2021-07-27] MEDS: ASCORBIC ACID 500 MG TABLET PO SCH ×3 (07:03→16:38)
--- NOTE | 2021-07-27 07:53 | RAD REPORT ---
EXAM DESCRIPTION: RAD - Chest Single View - 07/27/2021 6:45 am CLINICAL HISTORY: Respiratory failure COMPARISON: Chest Single View dated 07/23/2021; Chest Pa And Lat (2 Views) dated 06/27/2021; Chest Pa An d Lat (2 Views) dated 06/10/2021 FINDINGS: Lines: None. Lungs: Similar moderate bilateral airspace disease. Pleural: No significant pleural effusions or pneumothorax. Cardiac: The heart size is within normal limits. Bones: No acute fractures. Other: IMPRESSION: Similar moderate bilateral airspace disease concerning for multifocal pneumonia.
[2021-07-27] MEDS: NACHLORIDE 0.45% 1,000 ML IV SCH (08:39)
[2021-07-27] MEDS: INSULIN -REGULAR HUMAN 50 UNIT/0.5 ML ML SQ SCH ×4 (08:39→21:00)
[2021-07-27] MEDS: BARICITINIB 2 MG TABLET PO SCH (08:40)
[2021-07-27] MEDS: METHYLPREDNISOLONE 40 MG INJ IV SCH ×2 (08:42→19:35)
[2021-07-27] MEDS: NEPRO SHAKE 237 ML CAN PO SCH ×3 (08:42→19:36)
[2021-07-27] MEDS: SODIUM BICARB 325 MG TAB PO SCH ×3 (08:43→16:39)
[2021-07-27] MEDS: APIXABAN 5 MG TABLET PO SCH ×2 (08:43→19:35)
[2021-07-27] MEDS: VITAMIN D 5,000 UNIT CAP PO SCH (08:45)
[2021-07-27] MEDS: TIOTROPIUM 5 SPRAYS/INHALER IH SCH (08:45)
[2021-07-27] MEDS: ZINC SULFATE 220 MG CAP PO SCH (08:45)
[2021-07-27] MEDS: BENZONATATE 100 MG CAP PO PRN ×2 (08:46→19:36)
[2021-07-27] MEDS: ASPIRIN EC 81 MG TAB PO SCH (08:54)
[2021-07-27] MEDS: SOD FERRIC GLUC COMPLX/SUCROSE 250 MG in NA CHLORIDE 0.9% 250 ML IV SCH (09:35)
[2021-07-27 14:09] LABS: Absolute Lymphocytes (CBC) 0.3 K/uL (0.7-4.9); Basophils % 0.3 % (0-1.3); Lymphocytes % 3.4 % (15.3-44.8); MPV 8.9 fL (7.6-11.3); RBC Red Blood Cell Count 5.51 M/uL (4.33-5.43)
--- NOTE | 2021-07-27 19:02 | PN ---
Date of Progress Note: 07/27/2021 Subjective: The patient is seen and examined at bedside. He remains on 10 L nasal cannula oxygen. Physical Examination: Vital signs have been reviewed. Laboratory Data: Showing creatinine improving to 2.67, BUN of 91, magnesium was 3.6. CBC showing st able hemoglobin, hematocrit, and platelet count. Current Medications: Have been reviewed in detail. Impression: 1.Acute renal failure secondary to acute tubular necrosis, improving renal function. Continue curre nt management with IV fluids. 2.Hyperglycemia secondary to steroid use. 3.Acidosis, on sodium bicarbonate, which is also improving. 4.Uremia secondary to steroid use. Wean down steroids as tolerated and monitor closely. Plan: Overall patient's renal function is better. However, we are continuing to treat him for furth er COVID-19 pneumonia with baricitinib at this time. Continue all other medications and plan of care . VV/MODL Voice ID: [id number] Report ID: [id number]
[2021-07-27] MEDS: ATORVASTATIN 10 MG TAB PO SCH (19:35)
[2021-07-28] MEDS: NACHLORIDE 0.45% 1,000 ML IV SCH ×2 (00:03→20:01)
[2021-07-28] MEDS: ASCORBIC ACID 500 MG TABLET PO SCH ×5 (05:17→23:49)
[2021-07-28] MEDS: INSULIN -REGULAR HUMAN 50 UNIT/0.5 ML ML SQ SCH ×5 (07:30→20:10)
[2021-07-28] MEDS ORDERED: LORazepam 2 MG/ML VIAL IV ONE (08:00)
[2021-07-28] MEDS: BENZONATATE 100 MG CAP PO PRN (08:10)
[2021-07-28] MEDS: ASPIRIN EC 81 MG TAB PO SCH (08:10)
[2021-07-28] MEDS: BARICITINIB 2 MG TABLET PO SCH (08:10)
[2021-07-28] MEDS: ZINC SULFATE 220 MG CAP PO SCH (08:11)
[2021-07-28] MEDS: TIOTROPIUM 5 SPRAYS/INHALER IH SCH (08:11)
[2021-07-28] MEDS: SODIUM BICARB 325 MG TAB PO SCH ×3 (08:11→16:24)
[2021-07-28] MEDS: APIXABAN 5 MG TABLET PO SCH ×2 (08:11→19:57)
[2021-07-28] MEDS: NEPRO SHAKE 237 ML CAN PO SCH ×3 (08:12→19:57)
[2021-07-28] MEDS: VITAMIN D 5,000 UNIT CAP PO SCH (08:12)
[2021-07-28] MEDS: METHYLPREDNISOLONE 40 MG INJ IV SCH ×2 (08:12→20:10)
[2021-07-28] MEDS: SOD FERRIC GLUC COMPLX/SUCROSE 250 MG in NA CHLORIDE 0.9% 250 ML IV SCH (09:16)
[2021-07-28] MEDS: HALOPERIDOL LACT 5 MG/ML INJ IV PRN ×3 (10:24→23:18)
--- NOTE | 2021-07-28 12:25 | P.PN ---
Subjective Date of Service: 07/27/21 Primary Care Provider: Ewa Parisi Chief Complaint: Covid Pneumonia Subjective: No new changes Review of Systems 10-point ROS is otherwise unremarkable Physical Examination - Vital Signs Temperature: 97.8 F Blood Pressure: 152/88 Pulse: 102 Respirations: 26 Pulse Ox (%): 88 - Physical Exam General: Alert, In no apparent distress HEENT: Atraumatic, PERRLA, EOMI Neck: Supple, JVD not distended Respiratory: Clear to auscultation bilaterally, Normal air movement Cardiovascular: Regular rate/rhythm, Normal S1 S2 Gastrointestinal: Normal bowel sounds, No tenderness Musculoskeletal: No tenderness Integumentary: No rashes Neurological: Normal speech, Normal tone, Normal affect Lymphatics: No axilla or inguinal lymphadenopathy Assessment & Plan - Problems (Diagnosis) (1) Acute on chronic renal failure Current Visit: Yes Status: Acute Plan: possible atn secondary to covid. His baseline creatine is 1.3. will consult Dr. Ford Qualifiers: Acute renal failure type: unspecified Chronic kidney disease stage: stage 4 (severe) Qualified Code(s): N17.9 - Acute kidney failure, unspecified; N18.4 - Chronic kidney disease, stage 4 (severe) (2) COVID-19 Current Visit: Yes Status: Acute Plan: will consult Dr. Aviles. He is improving with steroids and high flow oxygen (3) COPD (chronic obstructive pulmonary disease) Current Visit: Yes Status: Chronic Plan: Start on levalbuterol and he is on steroids. Qualifiers: COPD type: chronic bronchitis Chronic bronchitis type: simple Qualified Code(s): J41.0 - Simple chronic bronchitis (4) DM2 (diabetes mellitus, type 2) Current Visit: Yes Status: Chronic Plan: elevated today will start him on a low dose sliding scale Qualifiers: Diabetes mellitus rehab director insulin use: without rehab director use Diabetes mellitus complication status: without complication Qualified Code(s): E11.9 - Type 2 diabetes mellitus without complications (5) HTN (hypertension) Current Visit: Yes Status: Acute Plan: will start the patient on his home medications. Ruiz adjust as necessary Qualifiers: Hypertension type: primary hypertension Qualified Code(s): I10 - Essential (primary) hypertension Discharge Plan: Home Plan to discharge in: 24 Hours - Code Status/Comfort Care Code Status Assessed: No Physician Review: Patient Assessed, Agree with Above Assessment and Plan Critical Care: No Time Spent Managing Pts Care (In Minutes): 20
--- NOTE | 2021-07-28 12:28 | P.PN ---
Subjective Date of Service: 07/28/21 Primary Care Provider: Ewa Parisi Chief Complaint: Covid Pneumonia Subjective: Worsening (delirium) Review of Systems is unable to be obtained Physical Examination - Vital Signs Temperature: 97.8 F Blood Pressure: 152/88 Pulse: 102 Respirations: 26 Pulse Ox (%): 88 - Physical Exam General: Delirious HEENT: Atraumatic, PERRLA, EOMI Neck: Supple, JVD not distended Respiratory: Clear to auscultation bilaterally, Normal air movement Cardiovascular: Regular rate/rhythm, Normal S1 S2 Gastrointestinal: Normal bowel sounds, No tenderness Musculoskeletal: No tenderness Integumentary: No rashes Neurological: Normal speech, Normal tone, Normal affect Lymphatics: No axilla or inguinal lymphadenopathy Assessment & Plan - Problems (Diagnosis) (1) COVID-19 Current Visit: Yes Status: Acute Plan: patient is still on high flow oxygen. he is delirious. Possible from the steroids or covid encephalopathy. He has his by the bedside. Most likely the best way to keep him calm. Discussed with Dr. Aviles. Have stopped the risperidone and ativan which were not very effective. Will switch to haliperidol as per Dr. Aviles. (2) Acute on chronic renal failure Current Visit: Yes Status: Acute Plan: possible atn secondary to covid. His baseline creatine is 1.3. will consult Dr. Ford Qualifiers: Acute renal failure type: unspecified Chronic kidney disease stage: stage 4 (severe) Qualified Code(s): N17.9 - Acute kidney failure, unspecified; N18.4 - Chronic kidney disease, stage 4 (severe) (3) COPD (chronic obstructive pulmonary disease) Current Visit: Yes Status: Chronic Plan: Start on levalbuterol and he is on steroids. Qualifiers: COPD type: chronic bronchitis Chronic bronchitis type: simple Qualified Code(s): J41.0 - Simple chronic bronchitis (4) DM2 (diabetes mellitus, type 2) Current Visit: Yes Status: Chronic Plan: elevated today will start him on a low dose sliding scale Qualifiers: Diabetes mellitus medical terminologist insulin use: without alf use Diabetes mellitus complication status: without complication Qualified Code(s): E11.9 - Type 2 diabetes mellitus without complications (5) HTN (hypertension) Current Visit: Yes Status: Acute Plan: will start the patient on his home medications. Ruiz adjust as necessary Qualifiers: Hypertension type: primary hypertension Qualified Code(s): I10 - Essential (primary) hypertension Discharge Plan: Home Plan to discharge in: 24 Hours - Code Status/Comfort Care Code Status Assessed: No Physician Review: Patient Assessed, Agree with Above Assessment and Plan Critical Care: No Time Spent Managing Pts Care (In Minutes): 30
[2021-07-28] MEDS ORDERED: WATER FOR INJ,STERILE 10 ML IM PRN (13:17)
[2021-07-28] MEDS: ZIPRASIDONE MESYLA 20 MG/VIAL IM PRN (13:23)
[2021-07-28] MEDS: ATORVASTATIN 10 MG TAB PO SCH (19:58)
[2021-07-28] MEDS ORDERED: RISPERIDONE 1 MG TABLET PO SCH (21:00)
[2021-07-29] MEDS: ZIPRASIDONE MESYLA 20 MG/VIAL IM PRN ×2 (02:14→15:20)
[2021-07-29] MEDS ORDERED: WATER FOR INJ,STERILE 10 ML ONE ×2 (02:16→14:54)
[2021-07-29] MEDS: NACHLORIDE 0.45% 1,000 ML IV SCH (05:29)
[2021-07-29] MEDS: HALOPERIDOL LACT 5 MG/ML INJ IV PRN ×4 (05:59→23:21)
[2021-07-29] MEDS: ASCORBIC ACID 500 MG TABLET PO SCH (06:00)
[2021-07-29] MEDS: INSULIN -REGULAR HUMAN 50 UNIT/0.5 ML ML SQ SCH ×5 (07:30→20:57)
[2021-07-29] MEDS: SODIUM BICARB 325 MG TAB PO SCH ×3 (08:00→16:58)
[2021-07-29] MEDS: ASPIRIN EC 81 MG TAB PO SCH (09:00)
[2021-07-29] MEDS: APIXABAN 5 MG TABLET PO SCH (09:00)
[2021-07-29] MEDS: ZINC SULFATE 220 MG CAP PO SCH (09:00)
[2021-07-29] MEDS: VITAMIN D 5,000 UNIT CAP PO SCH (09:00)
[2021-07-29] MEDS: BARICITINIB 2 MG TABLET PO SCH (09:00)
[2021-07-29] MEDS: TIOTROPIUM 5 SPRAYS/INHALER IH SCH (09:00)
[2021-07-29] MEDS: NEPRO SHAKE 237 ML CAN PO SCH ×3 (09:00→19:00)
--- NOTE | 2021-07-29 09:07 | P.PN ---
Subjective Date of Service: 07/29/21 Primary Care Provider: Ewa Parisi Chief Complaint: Covid Pneumonia Subjective: Worsening (had to placed on a bipap due to his agitation and hypoxia) Review of Systems is unable to be obtained Physical Examination - Vital Signs Temperature: 96.9 F Blood Pressure: 139/70 Pulse: 81 Respirations: 18 Pulse Ox (%): 97 - Physical Exam General: Mild distress, Delirious HEENT: Atraumatic, PERRLA, EOMI Neck: Supple, JVD not distended Respiratory: Clear to auscultation bilaterally, Normal air movement Cardiovascular: Regular rate/rhythm, Normal S1 S2 Gastrointestinal: Normal bowel sounds, No tenderness Musculoskeletal: No tenderness Integumentary: No rashes Neurological: Normal speech, Normal tone, Normal affect Lymphatics: No axilla or inguinal lymphadenopathy Assessment & Plan - Problems (Diagnosis) (1) COVID-19 Current Visit: Yes Status: Acute Plan: patient is still on high flow oxygen. he is delirious. Possible from the steroids or covid encephalopathy. He has his by the bedside. Most likely the best way to keep him calm. Discussed with Dr. Aviles. Have stopped the risperidone and ativan which were not very effective. Will switch to haliperidol as per Dr. Aviles. 07/29 Will continue him on oxygen and steroids. Hold his oral medications (2) Acute on chronic renal failure Current Visit: Yes Status: Acute Plan: possible atn secondary to covid. His baseline creatine is 1.3. will consult Dr. Ford Qualifiers: Acute renal failure type: unspecified Chronic kidney disease stage: stage 4 (severe) Qualified Code(s): N17.9 - Acute kidney failure, unspecified; N18.4 - Chronic kidney disease, stage 4 (severe) (3) COPD (chronic obstructive pulmonary disease) Current Visit: Yes Status: Chronic Plan: Start on levalbuterol and he is on steroids. Qualifiers: COPD type: chronic bronchitis Chronic bronchitis type: simple Qualified Code(s): J41.0 - Simple chronic bronchitis (4) DM2 (diabetes mellitus, type 2) Current Visit: Yes Status: Chronic Plan: elevated today will start him on a low dose sliding scale Qualifiers: Diabetes mellitus fdc insulin use: without fdc use Diabetes mellitus complication status: without complication Qualified Code(s): E11.9 - Type 2 diabetes mellitus without complications (5) HTN (hypertension) Current Visit: Yes Status: Acute Plan: will start the patient on his home medications. Ruiz adjust as necessary Qualifiers: Hypertension type: primary hypertension Qualified Code(s): I10 - Essential (primary) hypertension Discharge Plan: Home Plan to discharge in: Greater than 2 days - Code Status/Comfort Care Code Status Assessed: No Physician Review: Patient Assessed, Agree with Above Assessment and Plan Critical Care: No Time Spent Managing Pts Care (In Minutes): 25
[2021-07-29] MEDS ORDERED: GLUCAGON 1 MG/VIAL IM PRN (09:23)
[2021-07-29] MEDS ORDERED: D50W 25 GM/50 ML SYRINGE IV PRN (09:23)
[2021-07-29] MEDS: SOD FERRIC GLUC COMPLX/SUCROSE 250 MG in NA CHLORIDE 0.9% 250 ML IV SCH (09:32)
[2021-07-29] MEDS: METHYLPREDNISOLONE 40 MG INJ IV SCH ×2 (09:39→19:54)
[2021-07-29 10:32] VITALS: BMI 29.5
[2021-07-29 14:01] LABS: Absolute Lymphocytes (CBC) 0.3 K/uL (0.7-4.9)
[2021-07-29 14:07] LABS: Albumin 2.2 g/dL (3.4-5.0); Bilirubin Total 0.7 mg/dL (0.2-1.0); Protein, Total 7.4 g/dL (6.4-8.2)
[2021-07-29 14:08] LABS: Basophils % 0.1 % (0-1.3); Hematocrit 35.7 % (39.6-49.0); Lymphocytes % 2.2 % (15.3-44.8); MPV 9.7 fL (7.6-11.3); RBC Red Blood Cell Count 5.26 M/uL (4.33-5.43)
[2021-07-29 14:10] LABS: Potassium 6.1 mmol/L (3.5-5.1)
[2021-07-29] MEDS ORDERED: D5 0.45 NS 1,000 ML IV SCH (15:14)
[2021-07-29] MEDS: ENOXAPARIN 80 MG/0.8 ML SQ SCH (16:57)
--- NOTE | 2021-07-29 20:20 | P.PN ---
Date of Service: 07/29/21 Vital Signs Temp Pulse Resp BP Pulse Ox 98.5 F 118 H 30 H 164/95 H 95 07/29/21 16:00 07/29/21 16:00 07/29/21 16:00 07/29/21 12:00 07/29/21 16:00 Medications Albuterol Sulfate (Albuterol 2.5 Mg/3 Ml Neb Daja) 2.5 mg NEB Q4HP PRN PRN Reason: WHEEZING Benzonatate (Benzonatate 100 Mg Cap) 100 mg PO Q6H PRN PRN Reason: COUGH Last Admin: 07/28/21 08:10 Dose: 100 mg Documented by: Cholecalciferol (Vitamin D 5,000 Unit Cap) 5,000 unit PO DAILY [facility] Last Admin: 07/29/21 09:00 Dose: Not Given Documented by: Dextrose (D50w 25 Gm/50 Ml Syringe) 12.5 gm IV PRN PRN; Protocol PRN Reason: HYPOGLYCEMIA Enoxaparin Sodium (Enoxaparin 80 Mg/0.8 Ml) 80 mg SQ DAILY 5 PM [facility] Last Admin: 07/29/21 16:57 Dose: 80 mg Documented by: Enteral Nutritional Formula (Nepro Shake 237 Ml Can) 240 ml PO TID [facility] Last Admin: 07/29/21 19:00 Dose: Not Given Documented by: Glucagon (Glucagon 1 Mg/Vial) 1 mg IM 1X PRN; Protocol PRN Reason: HYPOGLYCEMIA Haloperidol Lactate (Haloperidol Lact 5 Mg/Ml Inj) 2 mg IV Q4H PRN PRN Reason: AGITATION Last Admin: 07/29/21 18:50 Dose: 2 mg Documented by: Home Med (Dapagliflozin Propanediol [Farxiga]) 10 mg PO DAILY [facility] Last Admin: 07/29/21 09:00 Dose: Not Given Documented by: Dextrose/Sodium Chloride (Dextrose 5% O.45% Saline) 1,000 mls @ 75 mls/hr IV .[id number] [facility] Last Admin: 07/29/21 15:47 Dose: 1,000 mls Documented by: Insulin Human Regular (Insulin -Regular Human 50 Unit/0.5 Ml Ml) 0 unit SQ ACHS [facility]; Protocol Last Admin: 07/29/21 17:03 Dose: 9 unit Documented by: Ipratropium [place] (Ipratropium Brom 0.5mg/2.5ml) 0.5 mg NEB Q4HP PRN PRN Reason: WHEEZING Methylprednisolone Sodium Succinate (Methylprednisolone 40 Mg Inj) 80 mg IV Q12HR [facility] Last Admin: 07/29/21 19:54 Dose: 80 mg Documented by: Ondansetron HCl (Ondansetron 4 Mg/2 Ml Vial) 4 mg IV Q6HP PRN PRN Reason: NAUSEA / VOMITING Last Admin: 07/24/21 09:29 Dose: 4 mg Documented by: Sodium Bicarbonate (Sodium Bicarb 325 Mg Tab) 650 mg PO TIDWM [facility] Last Admin: 07/29/21 16:58 Dose: Not Given Documented by: Sodium Chloride (Flush Normal Saline 10 Ml) 10 ml IV BID [facility] Last Admin: 07/29/21 19:28 Dose: 10 ml Documented by: Sterile Water (Water For Inj,Sterile 10 Ml) 1.2 ml IM UD PRN PRN Reason: DILUTION OF MED Last Admin: 07/28/21 13:24 Dose: 1.2 ml Documented by: Tiotropium [place] (Tiotropium 5 Sprays/Inhaler) 1 sprays IH DAILY [facility] Last Admin: 07/29/21 09:00 Dose: Not Given Documented by: Zinc Sulfate (Zinc Sulfate 220 Mg Cap) 220 mg PO DAILY [facility] Last Admin: 07/29/21 09:00 Dose: Not Given Documented by: Ziprasidone (Ziprasidone Mesyla 20 Mg/Vial) 20 mg IM Q12H PRN PRN Reason: AGITATION Last Admin: 07/29/21 15:20 Dose: 20 mg Documented by: Microbiology Results 07/23/21 15:40 Blood - Blood Aerobic Blood Culture - Final 07/23/21 15:40 Blood - Blood Blood Culture Gram Stain - Final 07/23/21 15:40 Blood - Blood Anaerobic Blood Culture - Final Assessment/ Plan: Nephrology Progress Note Limited IH/ ROS due to AMS Worsening hypoxia and mental status Vitals, medications blood work and imaging reviewed in the chart NAD. NCAT. MMM. Neck supple. Diminished. RRR. ND Abd. No C/C/E. Awake. No speech. Crowell EXAM DESCRIPTION: US - Renal Ultrasound-Complete - 07/24/2021 1:54 pm CLINICAL HISTORY: Renal failure presumed chronic Flank pain COMPARISON: No comparisons FINDINGS: Both kidneys are normal in size, shape and echotexture. The right kidney measures 9.5 x 4.5 x 4.2 cm. No hydronephrosis, focal mass or perinephric fluid. The left kidney measures 9.4 x 5.9 x 5.3 cm. 26 x 25 mm benign cyst medial left kidney. No hydronephrosis, focal mass or perinephric fluid. The urinary bladder is incompletely distended without gross abnormality seen. IMPRESSION: Benign left renal cyst measuring 25 mm, otherwise normal study. A/P Continue current POC and Medications other than the changes listed. AM labs as ordered. Recommend daily weight. Greater than 30min patient care. LUCIANA likely due to hypovolemia CKD III with proteinuria -No NSAIDs Hypernatremia -Change IVF D5W Hyperkalemia -NPO -Continue IVF -Consider kayexalate if no improvement Acidosis -Bicarb prn DM II with CKD -RISS Moderate malnutrition -Encourage nutrition as tolerated Anemia in chronic illness Iron deficiency -Monitor H&H Toxic metabolic encephalopathy -Continue Bipap COVID-19 PNA Acute hypoxic respiratory failure -Continue Oxygen supplementation -Continue Bipap -Continue Baricitinab
[2021-07-29 20:53] LABS: Anisocytosis 3+; Blood Morphology Comment NOTED (NOT SEEN); Ovalocytes 1+; Platelet Estimate ADEQ; Poikilocytosis 2+; Polychromasia 2+; Target Cells FEW; Teardrop Cell FEW
[2021-07-29] MEDS: D5W 1,000 ML IV SCH (20:57)
[2021-07-30] MEDS ORDERED: MORPHINE 2 MG/ML SYR IV ONE (01:35)
[2021-07-30] MEDS ORDERED: LORazepam 2 MG/ML VIAL IV ONE (01:44)
[2021-07-30] MEDS ORDERED: MORPHINE 2 MG/ML SYR ONE (01:55)
[2021-07-30] MEDS ORDERED: LORazepam 2 MG/ML VIAL ONE (02:09)
[2021-07-30 05:05] LABS: Magnesium 2.8 mg/dL (1.8-2.4); Phosphorus 3.4 mg/dL (2.5-4.9); Uric Acid 11.6 mg/dL (3.5-7.2)
[2021-07-30] MEDS: D5W 1,000 ML IV SCH ×2 (06:59→16:58)
[2021-07-30] MEDS: BARICITINIB 2 MG TABLET PO SCH (09:00)
[2021-07-30] MEDS: TIOTROPIUM 5 SPRAYS/INHALER IH SCH (09:00)
[2021-07-30] MEDS: ZINC SULFATE 220 MG CAP PO SCH (09:00)
[2021-07-30] MEDS: VITAMIN D 5,000 UNIT CAP PO SCH (09:00)
[2021-07-30] MEDS: METHYLPREDNISOLONE 40 MG INJ IV SCH ×2 (09:06→21:00)
[2021-07-30] MEDS: ZIPRASIDONE MESYLA 20 MG/VIAL IM PRN ×2 (09:07→22:54)
[2021-07-30] MEDS: INSULIN -REGULAR HUMAN 50 UNIT/0.5 ML ML SQ SCH ×4 (09:07→23:18)
[2021-07-30] MEDS: MORPHINE 2 MG/ML SYR IV PRN ×3 (09:07→22:53)
--- NOTE | 2021-07-30 10:16 | P.PN ---
Subjective Date of Service: 07/30/21 Primary Care Provider: Ewa Parisi Chief Complaint: Covid Pneumonia Subjective: Worsening (Patient is very agitated) Review of Systems is unable to be obtained Physical Examination - Vital Signs Temperature: 97.7 F Blood Pressure: 124/97 Pulse: 73 Respirations: 24 Pulse Ox (%): 93 - Physical Exam General: Unresponsive HEENT: Atraumatic, PERRLA, EOMI Neck: Supple, JVD not distended Respiratory: Clear to auscultation bilaterally, Normal air movement Cardiovascular: Regular rate/rhythm, Normal S1 S2 Gastrointestinal: Normal bowel sounds, No tenderness Musculoskeletal: No tenderness Integumentary: No rashes Neurological: Normal speech, Normal tone, Normal affect Lymphatics: No axilla or inguinal lymphadenopathy Assessment & Plan - Problems (Diagnosis) (1) COVID-19 Current Visit: Yes Status: Acute Plan: patient is still on high flow oxygen. he is delirious. Possible from the steroids or covid encephalopathy. He has his by the bedside. Most likely the best way to keep him calm. Discussed with Dr. Aviles. Have stopped the risperidone and ativan which were not very effective. Will switch to haliperidol as per Dr. Aviles. 07/30 Patient continues to be agitated. Family is very worried. Will have a meeting with them. Discussed with Dr. Aviles. Family seems to be leaning away from intubation. Meeting is at 10#0 (2) Acute on chronic renal failure Current Visit: Yes Status: Acute Plan: possible atn secondary to covid. His baseline creatine is 1.3. will consult Dr. Ford 07/30 Almost back to baseline Qualifiers: Acute renal failure type: unspecified Chronic kidney disease stage: stage 4 (severe) Qualified Code(s): N17.9 - Acute kidney failure, unspecified; N18.4 - Chronic kidney disease, stage 4 (severe) (3) COPD (chronic obstructive pulmonary disease) Current Visit: Yes Status: Chronic Plan: Start on levalbuterol and he is on steroids. Qualifiers: COPD type: chronic bronchitis Chronic bronchitis type: simple Qualified Code(s): J41.0 - Simple chronic bronchitis (4) DM2 (diabetes mellitus, type 2) Current Visit: Yes Status: Chronic Plan: elevated today will start him on a low dose sliding scale Qualifiers: Diabetes mellitus intermodal customer service insulin use: without intermodal customer service use Diabetes mellitus complication status: without complication Qualified Code(s): E11.9 - Type 2 diabetes mellitus without complications (5) HTN (hypertension) Current Visit: Yes Status: Acute Plan: will start the patient on his home medications. Ruiz adjust as necessary Qualifiers: Hypertension type: primary hypertension Qualified Code(s): I10 - Essential (primary) hypertension (6) End of life care Current Visit: Yes Status: Acute Plan: will discuss code status with the family today at 10:30 Discharge Plan: Home - Code Status/Comfort Care Code Status Assessed: No Physician Review: Patient Assessed, Agree with Above Assessment and Plan Critical Care: No Time Spent Managing Pts Care (In Minutes): 20
--- NOTE | 2021-07-30 12:32 | P.PN ---
Date of Service: 07/30/21 had a meeting with the family in my office. Overall productive. of course very emotional. Agreed to DNR. form signed by his POA and daughter
--- NOTE | 2021-07-30 12:53 | P.PN ---
Subjective Date of Service: 07/30/21 Primary Care Provider: Ewa Parisi Chief Complaint: Covid Pneumonia very agitated Review of Systems is unable to be obtained Physical Examination - Vital Signs Temperature: 97.7 F Blood Pressure: 123/69 Pulse: 66 Respirations: 22 Pulse Ox (%): 93 - Physical Exam General: Unresponsive Assessment & Plan - Problems (Diagnosis) (1) COVID-19 Current Visit: Yes Status: Acute Plan: Resp failure Renal function improving/ hyprnatremia/ microcytic anemai/ Start tube feeds/ CXRy NC/ labs reviewed/ hypernatrmia aan hyperkalemia/ Kayexalate 30 gm/ on IVF Physician Review: Patient Assessed, Agree with Above Assessment and Plan
[2021-07-30] MEDS ORDERED: SOD POLYSTYREN SUL 15 GM/60 ML UCUP PO ONE (13:06)
[2021-07-30] MEDS: HALOPERIDOL LACT 5 MG/ML INJ IV PRN ×2 (16:59→22:52)
[2021-07-30] MEDS: ENOXAPARIN 80 MG/0.8 ML SQ SCH (17:00)
--- NOTE | 2021-07-30 19:26 | P.PN ---
Date of Service: 07/30/21 Vital Signs Temp Pulse Resp BP Pulse Ox 97.5 F 65 25 H 141/72 H 89 L 07/30/21 16:00 07/30/21 16:00 07/30/21 16:59 07/30/21 16:00 07/30/21 16:59 Medications Albuterol Sulfate (Albuterol 2.5 Mg/3 Ml Neb Daja) 2.5 mg NEB Q4HP PRN PRN Reason: WHEEZING Benzonatate (Benzonatate 100 Mg Cap) 100 mg PO Q6H PRN PRN Reason: COUGH Last Admin: 07/28/21 08:10 Dose: 100 mg Documented by: Cholecalciferol (Vitamin D 5,000 Unit Cap) 5,000 unit PO DAILY [facility] Last Admin: 07/30/21 09:00 Dose: Not Given Documented by: Dextrose (D50w 25 Gm/50 Ml Syringe) 12.5 gm IV PRN PRN; Protocol PRN Reason: HYPOGLYCEMIA Enoxaparin Sodium (Enoxaparin 80 Mg/0.8 Ml) 80 mg SQ DAILY 5 PM [facility] Last Admin: 07/30/21 17:00 Dose: 80 mg Documented by: Glucagon (Glucagon 1 Mg/Vial) 1 mg IM 1X PRN; Protocol PRN Reason: HYPOGLYCEMIA Haloperidol Lactate (Haloperidol Lact 5 Mg/Ml Inj) 2 mg IV Q4H PRN PRN Reason: AGITATION Last Admin: 07/30/21 16:59 Dose: 2 mg Documented by: Home Med (Dapagliflozin Propanediol [Farxiga]) 10 mg PO DAILY [facility] Last Admin: 07/30/21 09:00 Dose: Not Given Documented by: Dextrose/Water (Dextrose In Water (1-Liter)) 1,000 mls @ 100 mls/hr IV .Q10H [facility] Last Admin: 07/30/21 16:58 Dose: 1,000 mls Documented by: Insulin Human Regular (Insulin -Regular Human 50 Unit/0.5 Ml Ml) 0 unit SQ ACHS [facility]; Protocol Last Admin: 07/30/21 16:58 Dose: 9 unit Documented by: Ipratropium [place] (Ipratropium Brom 0.5mg/2.5ml) 0.5 mg NEB Q4HP PRN PRN Reason: WHEEZING Methylprednisolone Sodium Succinate (Methylprednisolone 40 Mg Inj) 80 mg IV Q12HR [facility] Last Admin: 07/30/21 09:06 Dose: 80 mg Documented by: Morphine Sulfate (Morphine 2 Mg/Ml Syr) 2 mg IV Q4H PRN PRN Reason: Pain scale 5-7 (Moderate) Last Admin: 07/30/21 16:59 Dose: 2 mg Documented by: Ondansetron HCl (Ondansetron 4 Mg/2 Ml Vial) 4 mg IV Q6HP PRN PRN Reason: NAUSEA / VOMITING Last Admin: 07/24/21 09:29 Dose: 4 mg Documented by: Sodium Chloride (Flush Normal Saline 10 Ml) 10 ml IV BID [facility] Last Admin: 07/30/21 09:09 Dose: 10 ml Documented by: Sterile Water (Water For Inj,Sterile 10 Ml) 1.2 ml IM UD PRN PRN Reason: DILUTION OF MED Last Admin: 07/28/21 13:24 Dose: 1.2 ml Documented by: Zinc Sulfate (Zinc Sulfate 220 Mg Cap) 220 mg PO DAILY [facility] Last Admin: 07/30/21 09:00 Dose: Not Given Documented by: Ziprasidone (Ziprasidone Mesyla 20 Mg/Vial) 20 mg IM Q12H PRN PRN Reason: AGITATION Last Admin: 07/30/21 09:07 Dose: 20 mg Documented by: Microbiology Results 07/23/21 15:40 Blood - Blood Aerobic Blood Culture - Final 07/23/21 15:40 Blood - Blood Blood Culture Gram Stain - Final 07/23/21 15:40 Blood - Blood Anaerobic Blood Culture - Final Assessment/ Plan: Nephrology Progress Note Limited IH/ ROS due to AMS Persistent hypoxia Vitals, medications blood work and imaging reviewed in the chart NAD. NCAT. MMM. Neck supple. Diminished. RRR. ND Abd. No C/C/E. Awake. No speech. Crowell EXAM DESCRIPTION: US - Renal Ultrasound-Complete - 07/24/2021 1:54 pm CLINICAL HISTORY: Renal failure presumed chronic Flank pain COMPARISON: No comparisons FINDINGS: Both kidneys are normal in size, shape and echotexture. The right kidney measures 9.5 x 4.5 x 4.2 cm. No hydronephrosis, focal mass or perinephric fluid. The left kidney measures 9.4 x 5.9 x 5.3 cm. 26 x 25 mm benign cyst medial left kidney. No hydronephrosis, focal mass or perinephric fluid. The urinary bladder is incompletely distended without gross abnormality seen. IMPRESSION: Benign left renal cyst measuring 25 mm, otherwise normal study. A/P Continue current POC and Medications other than the changes listed. AM labs as ordered. Recommend daily weight. Greater than 30min patient care. LUCIANA likely due to hypovolemia CKD III with proteinuria -No NSAIDs Hypernatremia -Change IVF D5W Hyperkalemia -NPO -Continue IVF -Kayexalate as ordered Acidosis -Bicarb prn DM II with CKD -RISS Moderate malnutrition -Encourage nutrition as tolerated Anemia in chronic illness Iron deficiency -Monitor H&H Toxic metabolic encephalopathy -Continue Bipap COVID-19 PNA Acute hypoxic respiratory failure -Continue Oxygen supplementation -Continue Bipap -Continue Baricitinab
[2021-07-31] MEDS: D5W 1,000 ML IV SCH ×3 (02:45→23:00)
[2021-07-31] MEDS: MORPHINE 2 MG/ML SYR IV PRN ×4 (02:48→21:07)
[2021-07-31] MEDS: HALOPERIDOL LACT 5 MG/ML INJ IV PRN ×5 (02:50→21:06)
[2021-07-31 04:21] LABS: Absolute Lymphocytes (CBC) 0.4 K/uL (0.7-4.9); Basophils % 0.2 % (0-1.3); Hematocrit 35.8 % (39.6-49.0); Lymphocytes % 2.5 % (15.3-44.8); RBC Red Blood Cell Count 5.17 M/uL (4.33-5.43)
[2021-07-31 04:31] LABS: Albumin 1.8 g/dL (3.4-5.0); Potassium 5.4 mmol/L (3.5-5.1)
[2021-07-31] MEDS: INSULIN -REGULAR HUMAN 50 UNIT/0.5 ML ML SQ SCH ×4 (07:30→23:42)
[2021-07-31] MEDS: ZINC SULFATE 220 MG CAP PO SCH (09:00)
[2021-07-31] MEDS: VITAMIN D 5,000 UNIT CAP PO SCH (09:00)
[2021-07-31] MEDS: BARICITINIB 2 MG TABLET PO SCH (09:00)
[2021-07-31] MEDS: ZIPRASIDONE MESYLA 20 MG/VIAL IM PRN ×2 (09:11→21:07)
[2021-07-31] MEDS: METHYLPREDNISOLONE 40 MG INJ IV SCH ×2 (09:11→21:07)
--- NOTE | 2021-07-31 09:28 | P.PN ---
Subjective Date of Service: 07/31/21 Primary Care Provider: Ewa Parisi Chief Complaint: Covid Pneumonia Physical Examination - Vital Signs Temperature: 96.8 F Blood Pressure: 131/73 Pulse: 103 Respirations: 40 Pulse Ox (%): 94 Assessment & Plan - Problems (Diagnosis) (1) COVID-19 Current Visit: Yes Status: Acute Plan: patient is still on high flow oxygen. he is delirious. Possible from the iván roids or covid encephalopathy. He has his by the bedside. Most likely the best way to keep him calm. Discussed with Dr. Aviles. Have stopped the risperidone and ativan which were not very effective. Will switch to haliperidol as per Dr. Aviles. 07/30 Patient continues to be agitated. Family is very worried. Will have a meeting with them. Discussed with Dr. Aviles. Family seems to be leaning away from intubation. Meeting is at 10#0 (2) Acute on chronic renal failure Current Visit: Yes Status: Acute Plan: possible atn secondary to covid. His baseline creatine is 1.3. will consult Dr. Ford 07/30 Almost back to baseline Qualifiers: Acute renal failure type: unspecified Chronic kidney disease stage: stage 4 (severe) Qualified Code(s): N17.9 - Acute kidney failure, unspecified; N18.4 - Chronic kidney disease, stage 4 (severe) (3) COPD (chronic obstructive pulmonary disease) Current Visit: Yes Status: Chronic Plan: Start on levalbuterol and he is on steroids. Qualifiers: COPD type: chronic bronchitis Chronic bronchitis type: simple Qualified Code(s): J41.0 - Simple chronic bronchitis (4) DM2 (diabetes mellitus, type 2) Current Visit: Yes Status: Chronic Plan: elevated today will start him on a low dose sliding scale Qualifiers: Diabetes mellitus care home insulin use: without care home use Diabetes mellitus complication status: without complication Qualified Code(s): E11.9 - Type 2 diabetes mellitus without complications (5) HTN (hypertension) Current Visit: Yes Status: Acute Plan: will start the patient on his home medications. Ruiz adjust as necessary Qualifiers: Hypertension type: primary hypertension Qualified Code(s): I10 - Essential (primary) hypertension (6) End of life care Current Visit: Yes Status: Acute Plan: will discuss code status with the family today at 10:30 Physician Review: Patient Assessed, Agree with Above Assessment and Plan
[2021-07-31] MEDS ORDERED: HYDRALAZINE HCL 20 MG/ML VIAL IV PRN (16:33)
[2021-07-31] MEDS: ENOXAPARIN 80 MG/0.8 ML SQ SCH (16:44)
[2021-07-31] MEDS ORDERED: ALBUTEROL 2.5 MG/3 ML NEB SOL NEB PRN (17:00)
[2021-07-31] MEDS ORDERED: IPRATROPIUM BROM 0.5MG/2.5ML NEB PRN (17:00)
--- NOTE | 2021-07-31 20:58 | P.PN ---
Date of Service: 07/31/21 Vital Signs Temp Pulse Resp BP Pulse Ox 96.9 F 113 H 38 H 171/79 H 88 L 07/31/21 16:00 07/31/21 16:00 07/31/21 16:00 07/31/21 16:00 07/31/21 16:00 Medications Albuterol Sulfate (Albuterol 2.5 Mg/3 Ml Neb Daja) 2.5 mg NEB [id number] PRN PRN Reason: WHEEZING Benzonatate (Benzonatate 100 Mg Cap) 100 mg PO Q6H PRN PRN Reason: COUGH Last Admin: 07/28/21 08:10 Dose: 100 mg Documented by: Cholecalciferol (Vitamin D 5,000 Unit Cap) 5,000 unit PO DAILY [facility] Last Admin: 07/31/21 09:00 Dose: Not Given Documented by: Dextrose (D50w 25 Gm/50 Ml Syringe) 12.5 gm IV PRN PRN; Protocol PRN Reason: HYPOGLYCEMIA Enoxaparin Sodium (Enoxaparin 80 Mg/0.8 Ml) 80 mg SQ DAILY 5 PM [facility] Last Admin: 07/31/21 16:44 Dose: 80 mg Documented by: Glucagon (Glucagon 1 Mg/Vial) 1 mg IM 1X PRN; Protocol PRN Reason: HYPOGLYCEMIA Haloperidol Lactate (Haloperidol Lact 5 Mg/Ml Inj) 2 mg IV Q4H PRN PRN Reason: AGITATION Last Admin: 07/31/21 17:13 Dose: 2 mg Documented by: Home Med (Dapagliflozin Propanediol [Farxiga]) 10 mg PO DAILY [facility] Last Admin: 07/31/21 09:00 Dose: Not Given Documented by: Hydralazine HCl (Hydralazine Hcl 20 Mg/Ml Vial) 10 mg IV Q6HP PRN PRN Reason: FOR SBP>160 OR DBP>100 MMHG Last Admin: 07/31/21 17:03 Dose: 10 mg Documented by: Dextrose/Water (Dextrose In Water (1-Liter)) 1,000 mls @ 100 mls/hr IV .Q10H [facility] Last Admin: 07/31/21 13:00 Dose: 1,000 mls Documented by: Insulin Human Regular (Insulin -Regular Human 50 Unit/0.5 Ml Ml) 0 unit SQ ACHS [facility]; Protocol Last Admin: 07/31/21 16:44 Dose: 7 unit Documented by: Ipratropium [place] (Ipratropium Brom 0.5mg/2.5ml) 0.5 mg NEB [id number] PRN PRN Reason: WHEEZING Methylprednisolone Sodium Succinate (Methylprednisolone 40 Mg Inj) 80 mg IV Q12HR [facility] Last Admin: 07/31/21 09:11 Dose: 80 mg Documented by: Morphine Sulfate (Morphine 2 Mg/Ml Syr) 2 mg IV Q4H PRN PRN Reason: Pain scale 5-7 (Moderate) Last Admin: 07/31/21 17:14 Dose: 2 mg Documented by: Ondansetron HCl (Ondansetron 4 Mg/2 Ml Vial) 4 mg IV Q6HP PRN PRN Reason: NAUSEA / VOMITING Last Admin: 07/24/21 09:29 Dose: 4 mg Documented by: Sodium Chloride (Flush Normal Saline 10 Ml) 10 ml IV BID [facility] Last Admin: 07/31/21 09:15 Dose: 10 ml Documented by: Sterile Water (Water For Inj,Sterile 10 Ml) 1.2 ml IM UD PRN PRN Reason: DILUTION OF MED Last Admin: 07/28/21 13:24 Dose: 1.2 ml Documented by: Zinc Sulfate (Zinc Sulfate 220 Mg Cap) 220 mg PO DAILY [facility] Last Admin: 07/31/21 09:00 Dose: Not Given Documented by: Ziprasidone (Ziprasidone Mesyla 20 Mg/Vial) 20 mg IM Q12H PRN PRN Reason: AGITATION Last Admin: 07/31/21 09:11 Dose: 20 mg Documented by: Microbiology Results 07/23/21 15:40 Blood - Blood Aerobic Blood Culture - Final 07/23/21 15:40 Blood - Blood Blood Culture Gram Stain - Final 07/23/21 15:40 Blood - Blood Anaerobic Blood Culture - Final Assessment/ Plan: Nephrology Progress Note Limited IH/ ROS due to AMS Persistent hypoxia Agitated this morning No acute events overnight Vitals, medications blood work and imaging reviewed in the chart NAD. NCAT. MMM. Neck supple. Diminished. RRR. ND Abd. No C/C/E. Somnolent. No speech. Crowell EXAM DESCRIPTION: US - Renal Ultrasound-Complete - 07/24/2021 1:54 pm CLINICAL HISTORY: Renal failure presumed chronic Flank pain COMPARISON: No comparisons FINDINGS: Both kidneys are normal in size, shape and echotexture. The right kidney measures 9.5 x 4.5 x 4.2 cm. No hydronephrosis, focal mass or perinephric fluid. The left kidney measures 9.4 x 5.9 x 5.3 cm. 26 x 25 mm benign cyst medial left kidney. No hydronephrosis, focal mass or perinephric fluid. The urinary bladder is incompletely distended without gross abnormality seen. IMPRESSION: Benign left renal cyst measuring 25 mm, otherwise normal study. A/P Continue current POC and Medications other than the changes listed. AM labs as ordered. Recommend daily weight. Greater than 30min patient care. LUCIANA likely due to hypovolemia CKD III with proteinuria -No NSAIDs Hypernatremia -Continue IVF D5W Hyperkalemia -NPO -Continue IVF Acidosis -Bicarb prn DM II with CKD -RISS Moderate malnutrition -Encourage nutrition as tolerated Anemia in chronic illness Iron deficiency -Monitor H&H Toxic metabolic encephalopathy -Continue Bipap COVID-19 PNA Acute hypoxic respiratory failure -Continue Oxygen supplementation -Continue Bipap -Continue Baricitinab
[2021-08-01] MEDS: MORPHINE 2 MG/ML SYR IV PRN ×3 (00:34→05:30)
[2021-08-01] MEDS: HALOPERIDOL LACT 5 MG/ML INJ IV PRN ×3 (00:34→05:30)
[2021-08-01] MEDS ORDERED: HALOPERIDOL LACT 5 MG/ML INJ ONE (03:24)
[2021-08-01] MEDS ORDERED: MORPHINE 2 MG/ML SYR ONE (03:24)
[2021-08-01 04:44] VITALS: O2SAT 72
[2021-08-01] MEDS: D5W 1,000 ML IV SCH (07:50)
[2021-08-01] MEDS: VITAMIN D 5,000 UNIT CAP PO SCH (07:54)
[2021-08-01] MEDS: BARICITINIB 2 MG TABLET PO SCH (07:54)
[2021-08-01] MEDS: ZINC SULFATE 220 MG CAP PO SCH (07:55)
[2021-08-01 09:01] VITALS: BP 133/62; TEMP 97.2
--- NOTE | 2021-08-02 09:56 | P.DS ---
Admission Date: 07/23/21 Discharge Date: 08/01/21 Primary Care Provider: Ewa Parisi Disposition: Reason for Admission: Covid Pneumonia - Problems (1) COVID-19 Status: Acute (2) Acute on chronic renal failure Status: Acute Qualifiers: Acute renal failure type: unspecified Chronic kidney disease stage: stage 4 (severe) Qualified Code(s): N17.9 - Acute kidney failure, unspecified; N18.4 - Chronic kidney disease, stage 4 (severe) (3) COPD (chronic obstructive pulmonary disease) Status: Chronic Qualifiers: COPD type: chronic bronchitis Chronic bronchitis type: simple Qualified Code(s): J41.0 - Simple chronic bronchitis (4) DM2 (diabetes mellitus, type 2) Status: Chronic Qualifiers: Diabetes mellitus intermediate accountant insulin use: without [facility] use Diabetes mellitus complication status: without complication Qualified Code(s): E11.9 - Type 2 diabetes mellitus without complications (5) HTN (hypertension) Status: Acute Qualifiers: Hypertension type: primary hypertension Qualified Code(s): I10 - Essential (primary) hypertension (6) End of life care Status: Acute Brief History of Present Illness: Patient is an office patient of ours with a history of diabetes, copd and GI bleed, htn. He had his first covid vaccination this past Wednesday. He has been feeling dizzy for the past few days. The patient has been to [place] and had famiy visiting him at home. He was hypoxix in the office with a pulse ox in the 50-60's. tachycardic at rest and using acessory muscles. He was brought to the ER by his sister. The patient did well on oxygen. He was found to be covid positive. Will admit him to office. Hospital Course: Patient was admitted for covid on the . He was doing well. 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 Was then becoming more unstable. Had a family meeting on Wednesday. The family agreed to DNR. The patient continue to decline. He was bradycardic, hypoxic on the morning of the . Family was informed and came to pay they're respects. Unfortunately he at 9:20am. My sympathies to the family. Thank you for allowing me to take part in the patients care. Vital Signs/Physical Exam: Temp Pulse Resp BP Pulse Ox 97.2 F 109 H 40 H 133/62 51 L 08/01/21 08:00 08/01/21 08:00 08/01/21 08:00 08/01/21 08:00 08/01/21 08:00 General: Unresponsive Respiratory: Diminished Cardiovascular: Abnormal pulses Laboratory Data at Discharge: WBC Cancelled 08/01/21 05:00 Hgb Cancelled 08/01/21 05:00 Hct Cancelled 08/01/21 05:00 Plt Count Cancelled 08/01/21 05:00 PT 11.4 SECONDS (9.5-12.5) 07/23/21 18:40 INR 0.99 07/23/21 18:40 APTT 32.5 SECONDS (24.3-36.9) 07/23/21 18:40 Sodium Cancelled 08/01/21 05:00 Potassium Cancelled 08/01/21 05:00 BUN Cancelled 08/01/21 05:00 Creatinine Cancelled 08/01/21 05:00 Glucose Cancelled 08/01/21 05:00 Uric Acid Cancelled 08/01/21 05:00 Phosphorus Cancelled 08/01/21 05:00 Magnesium Cancelled 08/01/21 05:00 Total Bilirubin Cancelled 08/01/21 05:00 AST Cancelled 08/01/21 05:00 ALT Cancelled 08/01/21 05:00 Alkaline Phosphatase Cancelled 08/01/21 05:00 Lipase 144 U/L (73-393) 07/23/21 15:40 Home Medications: Albuterol Inhaler [Ventolin Inhaler] 2 puff IH Q6H PRN 06/11/21 Amox/Clavulanate [Augmentin 875-125 Tab*] 1 tab PO BID 06/11/21 Atorvastatin Calcium [Lipitor] 10 mg PO BEDTIME 06/11/21 Benzonatate [Tessalon Perle] 100 mg PO TID 06/11/21 Cyclobenzaprine [Flexeril*] 10 mg PO DAILY 06/11/21 Dapagliflozin Propanediol [Farxiga] 10 mg PO DAILY 06/11/21 Omeprazole 20 mg PO DAILY 06/11/21 Sitagliptin Phos/Metformin HCl [Janumet Xr 100-1,000 mg Tablet] 1 tab PO DAILY 06/11/21 Tiotropium [place] [Spiriva Respimat] 4 gm IH BID 06/11/21 Time spent managing pt's care (in minutes): 40
== END 2021-08-01 15:00 | disposition expired | DRG 177 ==
LOC: ER 14:22 → ERHOLD 18:03 → 4TH 07-25 18:06
PROVIDERS: ADMIT Internal Medicine; ATTEND Internal Medicine
PROC: 5A09457 Assistance with Respiratory Ventilation, 24-96 Consecutive Hours, Continuous Positive Airway Pressure (ICD-10-PCS; principal; 2021-07-29)
DX: U07.1 COVID-19 (principal); J12.82 Pneumonia due to coronavirus disease 2019; J96.01 Acute respiratory failure with hypoxia; G92 Toxic encephalopathy; N17.0 Acute kidney failure with tubular necrosis; N18.4 Chronic kidney disease, stage 4 (severe); E87.0 Hyperosmolality and hypernatremia; E46 Unspecified protein-calorie malnutrition; J44.0 Chronic obstructive pulmonary disease with (acute) lower respiratory infection; I12.9 Hypertensive chronic kidney disease with stage 1 through stage 4 chronic kidney disease, or unspecified chronic kidney disease; E11.22 Type 2 diabetes mellitus with diabetic chronic kidney disease; Z66 Do not resuscitate; E87.5 Hyperkalemia; Z68.29 Body mass index [BMI] 29.0-29.9, adult; D63.8 Anemia in other chronic diseases classified elsewhere; D50.9 Iron deficiency anemia, unspecified; E11.65 Type 2 diabetes mellitus with hyperglycemia; E83.51 Hypocalcemia; Z87.891 Personal history of nicotine dependence
CPT/HCPCS: 36415; 71045; 76770; 80048; 80053; 80076; 81003; 81015; 82570; 82728; 82805; 82947; 83540; 83690; 83735; 83880; 84100; 84145; 84156; 84466; 84484; 84550; 85025; 85379; 85610; 85730; 86140; 86850; 86900; 86901; 87040; 87086; 87088; 87205; 93005; 94660; 94760; 96365; 96366; 96375; 99285; J0360; J1630; J2270; J2405; J2916; J2920; J2930; J3486; J7030; J7050; J7799; U0003